=== PATIENT | female | born 2000 | race African-American/Black ===

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

== ENCOUNTER 2019-03-15 12:44 | Emergency (ER) | payer SELFPAY ==
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
[2019-03-15 14:19] LABS: ACETAMINOPHEN <2.0 ug/mL; CHLORIDE,CL 106 mmol/L (98-107); SODIUM,NA 137 mmol/L (136-145)
== END 2019-03-15 15:04 | disposition home or self-care (01) ==
LOC: MW.ED 12:44
DX: R45.851 Suicidal ideations (principal)
CPT/HCPCS: 36415; 80053; 80305; 81001; 83735; 84443; 85025; 93005; 99285; G0480

== ENCOUNTER 2019-04-24 13:19 | Emergency (ER) | payer SELFPAY ==
--- NOTE | 2019-04-24 13:37 | EDM.PDOC ---
ED HPI GENERAL MEDICAL PROBLEM - General Chief Complaint: ENT Problem Stated Complaint: AMB SORE THROAT Time Seen by Provider: 04/24/19 13:32 - History of Present Illness INITIAL COMMENTS - FREE TEXT/NARRATIVE: HISTORY AND PHYSICAL: History of present illness: Patient's 18-year-old black female presents with a concern of sore throat who reports history of . She has no other complaints Review of systems: As per history of present illness and below otherwise all systems reviewed and negative. Past medical history: As per history of present illness and as reviewed below otherwise noncontributory. Surgical history: As per history of present illness and as reviewed below otherwise noncontributory. Social history: No reported history of drug or alcohol abuse. Family history: As per history of present illness and as reviewed below otherwise noncontributory. Physical exam: HEENT: Atraumatic, normocephalic, pupils reactive, negative for conjunctival pallor or scleral icterus, mucous membranes moist, throat injected, neck supple , nontender, trachea midline. Lungs: Clear to auscultation, breath sounds equal bilaterally, chest nontender. Heart: S1S2, regular, negative for clicks, rubs, or JVD. Abdomen: Soft, nondistended, nontender. Negative for masses or hepatosplenomegaly. Negative for costovertebral tenderness. Pelvis: Stable nontender. Genitourinary: Deferred. Rectal: Deferred. Extremities: Atraumatic, negative for cords or calf pain. Neurovascular unremarkable. Neuro: Awake, alert, oriented. Cranial nerves II through XII unremarkable. Cerebellum unremarkable. Motor and sensory unremarkable throughout. Exam nonfocal. Diagnostics: Rapid strep Therapeutics: None Impression: # 1 pharyngitis #2 history of Definitive disposition and diagnosis as appropriate pending reevaluation and review of above. - Related Data Allergies Allergy/AdvReac Type Severity Reaction Status Date / Time No Known Allergies Allergy Verified 04/24/19 13:30 Home Meds: Home Meds . [No Known Home Meds] 11/16/17 [History] Past Medical History - Past Health History Medical/Surgical History: Denies Medical/Surgical History HEENT History: Reports: None Cardiovascular History: Reports: None Respiratory History: Reports: None Gastrointestinal History: Reports: None Genitourinary History: Reports: None SWABBER History: Reports: None Musculoskeletal History: Reports: None Neurological History: Reports: None Psychiatric History: Reports: Depression Hematologic History: Reports: None Immunologic History: Reports: None Oncologic (Cancer) History: Reports: None Dermatologic History: Reports: None - Infectious Disease History Infectious Disease History: Reports: Chicken Pox Social & Family History - Family History Family Medical History: Noncontributory - Tobacco Use Smoking Status *Q: Former Smoker Used Tobacco, but Quit: Yes Month/Year Tobacco Last Used: 2018 - Caffeine Use Caffeine Use: Reports: None - Recreational Drug Use Recreational Drug Use: Yes Recreational Drug Type: Reports: Marijuana/Hashish ED ROS GENERAL - Review of Systems Review Of Systems: ROS reveals no pertinent complaints other than HPI. ED EXAM, GENERAL - Physical Exam Exam: See Below (See dictation) Course - Vital Signs Last Recorded V/S: Last Vital Signs Temp 36.9 C 04/24/19 13:30 Pulse Resp BP Pulse Ox - Orders/Labs/Meds Orders: Active Orders 24 hr Category Date Time Status STREP SCRN A RAPID W CULT CONF [RM] Stat Lab 04/24/19 13:34 Ordered Departure - Departure Time of Disposition: 13:36 Disposition: Home, Self-Care 01 Condition: Good Clinical Impression: Pharyngitis - Discharge Information Additional Instructions: The following information is given to patients seen in the emergency department who are being discharged to home. This information is to outline your options for follow-up care. We provide all patients seen in our emergency department with a follow-up referral. The need for follow-up, as well as the timing and circumstances, are variable depending upon the specifics of your emergency department visit. If you don't have a primary care physician on staff, we will provide you with a referral. We always advise you to contact your personal physician following an emergency department visit to inform them of the circumstance of the visit and for follow-up with them and/or the need for any referrals to a consulting specialist. The emergency department will also refer you to a specialist when appropriate. This referral assures that you have the opportunity for followup care with a specialist. All of these measure are taken in an effort to provide you with optimal care, which includes your followup. Under all circumstances we always encourage you to contact your private physician who remains a resource for coordinating your care. When calling for followup care, please make the office aware that this follow-up is from your recent emergency room visit. If for any reason you are refused follow-up, please contact the [facility] emergency department at and asked to speak to the emergency department charge nurse. Push fluids Tylenol as directed follow-up with primary medical doctor and OB/ DOCUMENT COORDINATOR as needed as discussed and return as needed as discussed - My Orders Last 24 Hours: My Active Orders 04/24/19 13:34 STREP SCRN A RAPID W CULT CONF [RM] Stat - Assessment/Plan Last 24 Hours: My Active Orders 04/24/19 13:34 STREP SCRN A RAPID W CULT CONF [RM] Stat
== END 2019-04-24 15:00 | disposition home or self-care (01) ==
LOC: MW.ED 13:19
DX: O99.511 Diseases of the respiratory system complicating pregnancy, first trimester (principal); J02.9 Acute pharyngitis, unspecified; Z3A.01 Less than 8 weeks gestation of pregnancy; Z87.891 Personal history of nicotine dependence
CPT/HCPCS: 87081; 87880-QW; 99283

== ENCOUNTER 2019-05-12 13:57 | Emergency (ER) | payer SELFPAY ==
--- NOTE | 2019-05-12 14:18 | EDM.PDOC ---
ED HPI GENERAL MEDICAL PROBLEM - General Chief Complaint: Abdominal Pain Stated Complaint: abdominal pain Time Seen by Provider: 05/12/19 13:59 Source of Information: Reports: Patient History Limitations: Reports: No Limitations - History of Present Illness INITIAL COMMENTS - FREE TEXT/NARRATIVE: History of present illness: []Patient is a with severe right pelvic tenderness that started 15 minutes prior to arrival. She denies any vaginal bleeding or discharge, fevers, chills nausea vomiting or diarrhea. Review of systems: As per history of present illness and below otherwise all systems reviewed and negative. Past medical history: As per history of present illness and as reviewed below otherwise noncontributory. Surgical history: As per history of present illness and as reviewed below otherwise noncontributory. Social history: No reported history of drug or alcohol abuse. Family history: As per history of present illness and as reviewed below otherwise noncontributory. Physical exam: General: Well developed, well nourished in NAD HEENT: Atraumatic, normocephalic, pupils reactive, negative for conjunctival pallor or scleral icterus, mucous membranes moist, throat clear, neck supple, nontender, trachea midline. Lungs: Clear to auscultation, breath sounds equal bilaterally, chest nontender. Heart: S1S2, regular, negative for clicks, rubs, or JVD. Abdomen: NABS, Soft, nondistended, nontender. Negative for masses or hepatosplenomegaly. Negative for costovertebral tenderness. Pelvis: Stable nontender. Genitourinary: Deferred. Rectal: Deferred. Extremities: Atraumatic, negative for cords or calf pain. Neurovascular unremarkable. Neuro: Awake, alert, oriented. Cranial nerves II through XII unremarkable. Cerebellum unremarkable. Motor and sensory unremarkable throughout. Exam nonfocal. Skin:warm and dry Diagnostics: CBC hCG Quant Rh, UA chemistry, OB pelvic ultrasound-Single intrauterine gestation with estimated age of 10 weeks 0 days. Regular cardiac activity is seen. Normal appearance of both ovaries. Therapeutics: IV hydration ED Course: Stable Impression: Threatened Prescriptions: None Plan: Follow-up women's health Definitive disposition and diagnosis as appropriate pending reevaluation and review of above. Right Lower Abdominal Pain Score (Numeric/FACES): 9 - Related Data Allergies Allergy/AdvReac Type Severity Reaction Status Date / Time No Known Allergies Allergy Verified 05/12/19 14:12 Home Meds: Home Meds . 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: Musculoskeletal History: Reports: None Neurological History: Reports: None Psychiatric History: Reports: Depression Hematologic History: Reports: None Immunologic History: Reports: None Oncologic (Cancer) History: Reports: None Dermatologic History: Reports: None - Infectious Disease History Infectious Disease History: Reports: Chicken Pox Social & Family History - Family History Family Medical History: Noncontributory - Tobacco Use Smoking Status *Q: Never Smoker Second Hand Smoke Exposure: No - Caffeine Use Caffeine Use: Reports: None - Recreational Drug Use Recreational Drug Use: No ED ROS GENERAL - Review of Systems Review Of Systems: See Below ED EXAM - Physical Exam Exam: See Below Course - Vital Signs Last Recorded V/S: Last Vital Signs Temp 97.4 F 05/12/19 14:12 Pulse 81 05/12/19 15:57 Resp 16 05/12/19 15:05 BP 101/67 05/12/19 15:57 Pulse Ox 100 05/12/19 15:57 - Orders/Labs/Meds Orders: Active Orders 24 hr Category Date Time Status Sodium Chloride 0.9% [Saline Flush] Med 05/12/19 14:19 Active 10 ml FLUSH ASDIRECTED PRN Sodium Chloride 0.9% [Saline Flush] Med 05/12/19 14:19 Active 2.5 ml FLUSH ASDIRECTED PRN Saline Lock Insert [OM.PC] Stat Oth 05/12/19 14:19 Ordered Medication Orders Sodium Chloride (Saline Flush) 10 ml FLUSH ASDIRECTED PRN PRN Reason: Keep Vein Open Sodium Chloride (Saline Flush) 2.5 ml FLUSH ASDIRECTED PRN PRN Reason: Keep Vein Open Labs: Laboratory Tests 05/12/19 05/12/19 05/12/19 Range/Units 14:24 14:24 14:24 WBC 7.95 (4.0-11.0) K/uL RBC 4.22 L (4.30-5.90) M/uL Hgb 13.2 (12.0-16.0) g/dL Hct 38.1 (36.0-46.0) % MCV 90.3 (80.0-98.0) fL MCH 31.3 (27.0-32.0) pg MCHC 34.6 (31.0-37.0) g/dL RDW Std Deviation 44.1 (28.0-62.0) fl RDW Coeff of Silvino 13 (11.0-15.0) % Plt Count 313 (150-400) K/uL MPV 8.90 (7.40-12.00) fL Neut % (Auto) 68.7 (48.0-80.0) % Lymph % (Auto) 22.8 (16.0-40.0) % Baxter % (Auto) 5.4 (0.0-15.0) % Eos % (Auto) 2.5 (0.0-7.0) % Baso % (Auto) 0.6 (0.0-1.5) % Neut # (Auto) 5.5 (1.4-5.7) K/uL Lymph # (Auto) 1.8 (0.6-2.4) K/uL Baxter # (Auto) 0.4 (0.0-0.8) K/uL Eos # (Auto) 0.2 (0.0-0.7) K/uL Baso # (Auto) 0.1 (0.0-0.1) K/uL Nucleated RBC % 0.0 /100WBC Nucleated RBCs # 0 K/uL Sodium 138 (136-145) mmol/L Potassium 3.7 (3.5-5.1) mmol/L Chloride 105 (98-107) mmol/L Carbon Dioxide 23.2 (21.0-32.0) mmol/L BUN 8 (7.0-18.0) mg/dL Creatinine 0.9 (0.6-1.0) mg/dL Est Cr Clr Drug Dosing 75.59 mL/min Estimated GFR (MDRD) > 60.0 ml/min Glucose 123 H (74-106) mg/dL Calcium 8.7 (8.5-10.1) mg/dL Total Bilirubin 0.2 (0.2-1.0) mg/dL AST 15 (15-37) IU/L ALT 17 (14-63) IU/L Alkaline Phosphatase 59 (46-116) U/L Total Protein 6.8 (6.4-8.2) g/dL Albumin 3.2 L (3.4-5.0) g/dL Globulin 3.6 (2.6-4.0) g/dL Albumin/Globulin Ratio 0.9 (0.9-1.6) HCG, Quant mIU/mL Urine Color Urine Appearance Urine pH (5.0-8.0) Ur Specific [place] (1.001-1.035) Urine Protein (NEGATIVE) mg/dL Urine Glucose (UA) (NEGATIVE) mg/dL Urine Ketones (NEGATIVE) mg/dL Urine Occult Blood (NEGATIVE) Urine Nitrite (NEGATIVE) Urine Bilirubin (NEGATIVE) Urine Urobilinogen (<2.0) EU/dL Ur Leukocyte Esterase (NEGATIVE) Urine RBC (0-2/HPF) Urine WBC (0-5/HPF) Ur Epithelial Cells (NONE-FEW) Urine Bacteria (NEGATIVE) Urine Mucus (NONE-MOD) Blood Type O POSITIVE Antibody Screen NEGATIVE 05/12/19 05/12/19 Range/Units 14:24 16:42 WBC (4.0-11.0) K/uL RBC (4.30-5.90) M/uL Hgb (12.0-16.0) g/dL Hct (36.0-46.0) % MCV (80.0-98.0) fL MCH (27.0-32.0) pg MCHC (31.0-37.0) g/dL RDW Std Deviation (28.0-62.0) fl RDW Coeff of Silvino (11.0-15.0) % Plt Count (150-400) K/uL MPV (7.40-12.00) fL Neut % (Auto) (48.0-80.0) % Lymph % (Auto) (16.0-40.0) % Baxter % (Auto) (0.0-15.0) % Eos % (Auto) (0.0-7.0) % Baso % (Auto) (0.0-1.5) % Neut # (Auto) (1.4-5.7) K/uL Lymph # (Auto) (0.6-2.4) K/uL Baxter # (Auto) (0.0-0.8) K/uL Eos # (Auto) (0.0-0.7) K/uL Baso # (Auto) (0.0-0.1) K/uL Nucleated RBC % /100WBC Nucleated RBCs # K/uL Sodium (136-145) mmol/L Potassium (3.5-5.1) mmol/L Chloride (98-107) mmol/L Carbon Dioxide (21.0-32.0) mmol/L BUN (7.0-18.0) mg/dL Creatinine (0.6-1.0) mg/dL Est Cr Clr Drug Dosing mL/min Estimated GFR (MDRD) ml/min Glucose (74-106) mg/dL Calcium (8.5-10.1) mg/dL Total Bilirubin (0.2-1.0) mg/dL AST (15-37) IU/L ALT (14-63) IU/L Alkaline Phosphatase (46-116) U/L Total Protein (6.4-8.2) g/dL Albumin (3.4-5.0) g/dL Globulin (2.6-4.0) g/dL Albumin/Globulin Ratio (0.9-1.6) HCG, Quant 965677.0 mIU/mL Urine Color YELLOW Urine Appearance CLEAR Urine pH 6.5 (5.0-8.0) Ur Specific [place] 1.015 (1.001-1.035) Urine Protein NEGATIVE (NEGATIVE) mg/dL Urine Glucose (UA) NEGATIVE (NEGATIVE) mg/dL Urine Ketones NEGATIVE (NEGATIVE) mg/dL Urine Occult Blood NEGATIVE (NEGATIVE) Urine Nitrite NEGATIVE (NEGATIVE) Urine Bilirubin NEGATIVE (NEGATIVE) Urine Urobilinogen 0.2 (<2.0) EU/dL Ur Leukocyte Esterase NEGATIVE (NEGATIVE) Urine RBC 0-1 (0-2/HPF) Urine WBC 0-2 (0-5/HPF) Ur Epithelial Cells FEW (NONE-FEW) Urine Bacteria FEW (NEGATIVE) Urine Mucus LIGHT (NONE-MOD) Blood Type Antibody Screen Meds: Medications Generic Name Dose Route Start Last Admin Trade Name Freq PRN Reason Stop Dose Admin Sodium Chloride 10 ml 05/12/19 14:19 Saline Flush FLUSH ASDIRECTED PRN Keep Vein Open Sodium Chloride 2.5 ml 05/12/19 14:19 Saline Flush FLUSH ASDIRECTED PRN Keep Vein Open Discontinued Medications Generic Name Dose Route Start Last Admin Trade Name Freq PRN Reason Stop Dose Admin Sodium Chloride 1,000 mls @ 999 mls/hr 05/12/19 15:53 05/12/19 15:57 Normal Saline IV 05/12/19 16:53 999 mls/hr .Bolus ONE Administration Departure - Departure Time of Disposition: 17:06 Disposition: Home, Self-Care 01 Condition: Good Clinical Impression: Threatened - Discharge Information *PRESCRIPTION DRUG MONITORING PROGRAM REVIEWED*: Not Applicable *COPY OF PRESCRIPTION DRUG MONITORING REPORT IN PATIENT RANDY: Not Applicable Referrals: PCP,None [Primary Care Provider] - Forms: ED Department Discharge Additional Instructions: The following information is given to patients seen in the emergency department who are being discharged to home. This information is to outline your options for follow-up care. We provide all patients seen in our emergency department with a follow-up referral. The need for follow-up, as well as the timing and circumstances, are variable depending upon the specifics of your emergency department visit. If you don't have a primary care physician on staff, we will provide you with a referral. We always advise you to contact your personal physician following an emergency department visit to inform them of the circumstance of the visit and for follow-up with them and/or the need for any referrals to a consulting specialist. The emergency department will also refer you to a specialist when appropriate. This referral assures that you have the opportunity for follow-up care with a specialist. All of these measure are taken in an effort to provide you with optimal care, which includes your follow-up. Under all circumstances we always encourage you to contact your private physician who remains a resource for coordinating your care. When calling for follow-up care, please make the office aware that this follow-up is from your recent emergency room visit. If for any reason you are refused follow-up, please contact the [facility] Emergency Department at and asked to speak to the emergency department charge nurse. [facility] - Women's [facility] [address] [place] [id number] - My Orders Last 24 Hours: My Active Orders 05/12/19 14:19 Sodium Chloride 0.9% [Saline Flush] 10 ml FLUSH ASDIRECTED PRN Sodium Chloride 0.9% [Saline Flush] 2.5 ml FLUSH ASDIRECTED PRN Saline Lock Insert [OM.PC] Stat - Assessment/Plan Last 24 Hours: My Active Orders 05/12/19 14:19 Sodium Chloride 0.9% [Saline Flush] 10 ml FLUSH ASDIRECTED PRN Sodium Chloride 0.9% [Saline Flush] 2.5 ml FLUSH ASDIRECTED PRN Saline Lock Insert [OM.PC] Stat
[2019-05-12] MEDS ORDERED: Sodium Chloride 0.9% 10 ML Syringe FLUSH PRN (14:19)
[2019-05-12] MEDS ORDERED: Sodium Chloride 0.9% 2.5 ML Syringe FLUSH PRN (14:19)
[2019-05-12 14:58] LABS: CHLORIDE,CL 105 mmol/L (98-107); SODIUM,NA 138 mmol/L (136-145)
[2019-05-12] MEDS ORDERED: Sodium Chloride 0.9% 1,000 ML IV ONE (15:53)
--- NOTE | 2019-05-12 16:01 | US ---
HISTORY: Severe right lower quadrant pain. Ten weeks . COMPARISON: None available of this gestation. TECHNIQUE: Transabdominal ultrasound examination of the early was performed. FINDINGS: A single intrauterine gestational sac is seen with a pole. The crown-rump length measurement of 2.9 cm gives an estimated gestational age of 9 weeks 5 days. The mean sac diameter measurement of 4.4 centimeters gives an estimated gestational age of 10 weeks 2 days. The composite estimated age is 10 weeks 0 days with an estimated date of delivery of 12/08/2019. This correlates well with the LMP of 03/01/2019 which gives a clinical age of 10 weeks 2 days. Regular cardiac activity is seen at 167 BPM. There is no sign of free fluid in the pelvis. The ovaries are normal in appearance. Both ovaries have normal color and pulse doppler flow IMPRESSION: Single intrauterine gestation with estimated age of 10 weeks 0 days. Regular cardiac activity is seen. Normal appearance of both ovaries. Dictated by Chris Sandoval MD @ May 12 2019 3:55PM Signed by Dr. Chris Sandoval @ May 12 2019 4:00PM
== END 2019-05-12 17:30 | disposition home or self-care (01) ==
LOC: MW.ED 13:57
DX: O20.0 Threatened abortion (principal); Z3A.10 10 weeks gestation of pregnancy
CPT/HCPCS: 36415; 76815; 80053; 81001; 84702; 85025; 86850; 86900; 86901; 96360; 99284; J7040

== ENCOUNTER 2019-06-07 02:08 | Emergency (ER) | payer SELFPAY ==
--- NOTE | 2019-06-07 02:24 | EDM.PDOC ---
ED HPI GENERAL MEDICAL PROBLEM - General Chief Complaint: Respiratory Problem Stated Complaint: TROUBLE BREATHING Time Seen by Provider: 06/07/19 02:15 - History of Present Illness INITIAL COMMENTS - FREE TEXT/NARRATIVE: HISTORY AND PHYSICAL: History of present illness: The patient is a 18-year-old female who is a one para 0 an approximate 14 weeks by an ultrasound performed on May 12 here in the emergency department and who follows in our clinic with Shavonne Cleaning and presents with 5 days of cough occasionally productive of clear or white phlegm body aches malaise a sore throat initially which has now dissipated and some lumbar back pain. She has not had any urinary complaints no vomiting no diarrhea and no chest pain per se. She says that with the cough she is also having significant congestion and nasal drainage and she feels short of breath with these symptoms. She has not spoken to her provider about these symptoms. The patient is not having any abdominal pain or vaginal bleeding Review of systems: As per history of present illness and below otherwise all systems reviewed and negative. Past medical history: As per history of present illness and as reviewed below otherwise noncontributory. Surgical history: As per history of present illness and as reviewed below otherwise noncontributory. Social history: No reported history of drug or alcohol abuse. Family history: As per history of present illness and as reviewed below otherwise noncontributory. Physical exam: General: Well-developed well-nourished thin female who is nontoxic and has nasal quality to voice. Vital signs are noted by me. She is coughing in the emergency department with some clear phlegm HEENT: Atraumatic, normocephalic, pupils reactive, negative for conjunctival pallor or scleral icterus, mucous membranes moist, throat clear, neck supple, nontender, trachea midline. There is no cervical adenopathy or nuchal rigidity and the oropharynx has no erythema. The turbinates are boggy bilaterally but there is no discrete sinus tenderness with palpation Lungs: Clear to auscultation, breath sounds equal bilaterally, chest nontender. There is no wheezing stridor or work of breathing Heart: S1S2, regular, rate and rhythm no overt murmurs Abdomen: Soft, nondistended, nontender. NABS Negative for costovertebral tenderness. Pelvis: Stable nontender. Genitourinary: Deferred. Rectal: Deferred. Extremities: Atraumatic, no edema Neurovascular unremarkable. Neuro: Awake, alert, oriented. Cranial nerves II through XII unremarkable. Cerebellum unremarkable. Motor and sensory unremarkable throughout. Exam nonfocal. Diagnostics: Influenza A UA with reflex chest x-ray Therapeutics: Impression: URI/rhinitis-nasal congestion Second trimester Definitive disposition and diagnosis as appropriate pending reevaluation and review of above. 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: Musculoskeletal History: Reports: None Neurological History: Reports: None Psychiatric History: Reports: Depression Hematologic History: Reports: None Immunologic History: Reports: None Oncologic (Cancer) History: Reports: None Dermatologic History: Reports: None - Infectious Disease History Infectious Disease History: Reports: Chicken Pox Social & Family History - Family History Family Medical History: Noncontributory - Tobacco Use Smoking Status *Q: Never Smoker - Caffeine Use Caffeine Use: Reports: None - Recreational Drug Use Recreational Drug Use: No ED ROS GENERAL - Review of Systems Review Of Systems: ROS reveals no pertinent complaints other than HPI. ED EXAM, GENERAL - Physical Exam Exam: See Below (See dictation) Course - Vital Signs Last Recorded V/S: Last Vital Signs Temp 36.8 C 06/07/19 02:08 Pulse 106 H 06/07/19 02:08 Resp 18 06/07/19 02:08 BP 106/58 L 06/07/19 02:08 Pulse Ox 97 06/07/19 02:08 - Orders/Labs/Meds Labs: Laboratory Tests 06/07/19 Range/Units 02:25 Urine Color YELLOW Urine Appearance CLEAR Urine pH 6.5 (5.0-8.0) Ur Specific [place] 1.025 (1.001-1.035) Urine Protein NEGATIVE (NEGATIVE) mg/dL Urine Glucose (UA) NEGATIVE (NEGATIVE) mg/dL Urine Ketones NEGATIVE (NEGATIVE) mg/dL Urine Occult Blood NEGATIVE (NEGATIVE) Urine Nitrite NEGATIVE (NEGATIVE) Urine Bilirubin NEGATIVE (NEGATIVE) Urine Urobilinogen 0.2 (<2.0) EU/dL Ur Leukocyte Esterase NEGATIVE (NEGATIVE) Departure - Departure Time of Disposition: 03:02 Disposition: Home, Self-Care 01 Condition: Good Clinical Impression: Second trimester URI (upper respiratory infection) Qualifiers: URI type: unspecified URI Qualified Code(s): J06.9 - Acute upper respiratory infection, unspecified - Discharge Information Referrals: PCP,None [Primary Care Provider] - Forms: ED Department Discharge Additional Instructions: The following information is given to patients seen in the emergency department who are being discharged to home. This information is to outline your options for follow-up care. We provide all patients seen in our emergency department with a follow-up referral. The need for follow-up, as well as the timing and circumstances, are variable depending upon the specifics of your emergency department visit. If you don't have a primary care physician on staff, we will provide you with a referral. We always advise you to contact your personal physician following an emergency department visit to inform them of the circumstance of the visit and for follow-up with them and/or the need for any referrals to a consulting specialist. The emergency department will also refer you to a specialist when appropriate. This referral assures that you have the opportunity for followup care with a specialist. All of these measure are taken in an effort to provide you with optimal care, which includes your followup. Under all circumstances we always encourage you to contact your private physician who remains a resource for coordinating your care. When calling for followup care, please make the office aware that this follow-up is from your recent emergency room visit. If for any reason you are refused follow-up, please contact the [facility] emergency department at and ask to speak to the emergency department charge nurse. [facility] Primary care-Women's Health [address] [id number] Push hydration and call and schedule a follow-up appointment with Shavonne your provider in the clinic for further care and evaluation. He may use over-the- counter Benadryl or Claritin to help with nasal congestion and fluid as well as [id number] Vicks for sleep time to help open up. Airways. You will need to discuss with Shavonne Cleaning any additional cough medications due to your . He may also add [id number] Tylenol for pain or fevers. Return to ER as needed and as discussed
--- NOTE | 2019-06-07 03:02 | CR ---
INDICATION: cough TECHNIQUE: Chest radiograph 2 views COMPARISON: 07/14/18 FINDINGS: Mediastinum: The mediastinum is normal in appearance. The heart silhouette is normal in size and morphology. Lung: Both lungs are unremarkable in appearance. No sign of pleural effusion seen. No pneumothorax is identified. IMPRESSION: 1. No acute cardiopulmonary disease is seen. Dictated by: David Zhang MD @ 06/07/2019 02:59:31 (Electronically Signed)
== END 2019-06-07 03:10 | disposition home or self-care (01) ==
LOC: MW.ED 02:08
DX: O99.512 Diseases of the respiratory system complicating pregnancy, second trimester (principal); J06.9 Acute upper respiratory infection, unspecified; J31.0 Chronic rhinitis; Z3A.14 14 weeks gestation of pregnancy
CPT/HCPCS: 71046; 71046-26; 81003; 87804; 99283-25

== ENCOUNTER 2020-05-09 16:34 | Emergency (ER) | payer MEDICAID ==
[2020-05-09] MEDS ORDERED: Sodium Chloride 0.9% 1,000 ML IV ONE (16:42)
[2020-05-09] MEDS ORDERED: Sodium Chloride 0.9% 2.5 ML Syringe FLUSH PRN (16:42)
[2020-05-09] MEDS ORDERED: Sodium Chloride 0.9% 10 ML Syringe FLUSH PRN (16:42)
[2020-05-09] MEDS ORDERED: Ibuprofen 600 MG Tab PO ONE (17:01)
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
[2020-05-09 17:26] LABS: CARBON DIOXIDE,CO2 23.3 mmol/L (21.0-32.0); POTASSIUM,K 3.6 mmol/L (3.5-5.1)
--- NOTE | 2020-05-09 18:24 | CT ---
CT cervical spine Technique: Multiple axial sections through the cervical spine were obtained from above C1 inferiorly to the top of T3. Reconstructed sagittal and coronal images were reviewed. Findings: Vertebral body heights and disc spaces are maintained. Vertebral bodies and posterior arches are intact. No bony central or bony neural foraminal stenosis is seen. Visualized lung apices are clear. No acute fracture or abnormal subluxation is seen. Impression: 1. Nothing acute is appreciated on CT study of the cervical spine. Diagnostic code #1 This report was dictated in MDT
--- NOTE | 2020-05-09 18:25 | CT ---
Head CT Technique: Multiple axial sections through the brain were obtained. Intravenous contrast was not utilized. Comparison: No prior intracranial imaging is available. Findings: Ventricles along with basal cisterns and sulci over the convexities are within normal limits for the patient's age. No abnormal parenchymal densities are seen. No evidence of intracranial hemorrhage. No midline shift or mass-effect is seen. Visualized mastoid sinuses are clear. Minimal mucosal thickening is seen within the maxillary sinuses. No acute paranasal sinus finding is seen. No acute calvarial finding is appreciated. Impression: 1. Nothing acute is appreciated on noncontrast head CT study. Diagnostic code #2 This report was dictated in MDT
--- NOTE | 2020-05-09 18:37 | CR ---
Chest: 2 views of the chest were obtained. Comparison: Prior chest x-ray of 06/07/19. Heart size and mediastinum are normal. Lungs are clear with no acute parenchymal change. No discrete osseous abnormality is appreciated. Impression: 1. Nothing acute is appreciated on 2 view chest x-ray. Diagnostic code #1 Study was dictated in MDT
--- NOTE | 2020-05-09 18:52 | CR ---
Lumbar spine: AP and lateral views of the lumbar spine were obtained. Comparison: No prior lumbar spine imaging. Vertebral body heights and disc spaces are maintained. Pedicles are intact. Transverse and spinous processes are intact. Sacroiliac joints appear normal. Minimal scoliosis is noted on the frontal view. Impression: 1. Minimal scoliosis. 2. Two-view lumbar spine study is otherwise unremarkable. Nothing acute is appreciated. Diagnostic code #2 This report was dictated in MDT
--- NOTE | 2020-05-09 18:53 | CR ---
Thoracic spine: AP and lateral views of the thoracic spine were obtained. Comparison: No prior thoracic spine imaging. Mild scoliosis is noted. Vertebral body heights and disc spaces are maintained. Pedicles are intact. No subluxation or fracture is appreciated. Impression: 1. Mild scoliosis. 2. Two-view thoracic spine study is otherwise unremarkable. Diagnostic code #2 This report was dictated in MDT
[2020-05-09] MEDS ORDERED: Acetaminophen 500 MG Tab PO ONE (18:54)
== END 2020-05-09 19:17 | disposition home or self-care (01) ==
LOC: MW.ED 16:34
DX: S06.0X9A Concussion with loss of consciousness of unspecified duration, initial encounter (principal); S16.1XXA Strain of muscle, fascia and tendon at neck level, initial encounter; S39.012A Strain of muscle, fascia and tendon of lower back, initial encounter; N93.9 Abnormal uterine and vaginal bleeding, unspecified; Y04.2XXA Assault by strike against or bumped into by another person, initial encounter
CPT/HCPCS: 36415; 70450; 71046; 72070; 72100; 72125; 80053; 84703; 85025; 99284; A9270; 99283

== ENCOUNTER 2020-07-25 20:18 | Emergency (ER) | payer MEDICAID ==
--- NOTE | 2020-07-25 21:05 | EDM.PDOC ---
ED HPI GENERAL MEDICAL PROBLEM - General Chief Complaint: Fever Stated Complaint: SICK, COUGH, FEVER Time Seen by Provider: 07/25/20 20:20 - History of Present Illness INITIAL COMMENTS - FREE TEXT/NARRATIVE: History of present illness: [] Patient's been sick for 5 or 6 days. She has cough shortness of breath feels tired. She went to an emergency department 5 days ago and did not wait because it was too busy. He is also sick and I have diagnosed her tonight with an otitis media. Review of systems: As per history of present illness and below otherwise all systems reviewed and negative. Past medical history: As per history of present illness and as reviewed below otherwise noncontributory. Surgical history: As per history of present illness and as reviewed below otherwise noncontributory. Social history: No reported history of drug or alcohol abuse. Family history: As per history of present illness and as reviewed below otherwise noncontributory. Physical exam: Constitutional - well developed, well-nourished and in no acute distress HEENT - normocephalic, no evidence of trauma - external nose and mouth normal - no mass in neck and no JVD - mucosae moist EYES - full EOM, PERRL, no icterus - no evidence of inflammation, injection, or drainage Respiratory - no respiratory distress, equal bilateral expansion, lungs clear to auscultation and no abnormal lung sounds Cardiovascular - Regular Rhythm with S1 and S2 appreciated and no murmur, gallop or rub. GI - abdomen soft without distension or organomegaly - normal bowel sounds - no guard or rebound Musculoskeletal no gross deformity of long bones or joints - no tenderness, swelling or edema Neurologic - Alert and oriented times four - CN II-XII grossly intact - motor sensory and coordination symmetrically normal Psychiatric - appropriate mood and affect with normal thought content Hematologic - No petechiae or purpura - mucosa appropriate color and sclera not pale - normal nail bed color and refill Integument - no rash or evidence of trauma - normal turgor Diagnostics: [] Therapeutics: [] Impression: [] Plan: [] Definitive disposition and diagnosis as appropriate pending reevaluation and review of above. - Related Data Allergies Allergy/AdvReac Type Severity Reaction Status Date / Time No Known Allergies Allergy Verified 07/25/20 20:38 Home Meds: Home Meds . 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: Musculoskeletal History: Reports: None Neurological History: Reports: None Psychiatric History: Reports: Anxiety, Depression Hematologic History: Reports: None Immunologic History: Reports: None Oncologic (Cancer) History: Reports: None Dermatologic History: Reports: None - Infectious Disease History Infectious Disease History: Reports: None Social & Family History - Family History Family Medical History: Noncontributory - Tobacco Use Tobacco Use Status *Q: Never Tobacco User Second Hand Smoke Exposure: No - Caffeine Use Caffeine Use: Reports: None - Recreational Drug Use Recreational Drug Use: No ED ROS GENERAL - Review of Systems Review Of Systems: Comprehensive ROS is negative, except as noted in HPI. ED EXAM, GENERAL - Physical Exam Exam: See Below Free Text/Narrative:: My physical exam as in the HPI Course - Vital Signs Last Recorded V/S: Last Vital Signs Temp 96.6 F L 07/25/20 20:38 Pulse 94 07/25/20 20:38 Resp 18 07/25/20 20:38 BP 99/57 L 07/25/20 20:38 Pulse Ox 97 07/25/20 20:38 - Orders/Labs/Meds Orders: Active Orders 24 hr Category Date Time Status CORONAVIRUS COVID-19 PCR [facility] Stat Lab 07/25/20 21:05 Received Labs: Laboratory Tests 07/25/20 Range/Units 21:05 SARS CoV-2 RNA Rapid TAO NEGATIVE (NEGATIVE) Departure - Departure Time of Disposition: 21:42 Disposition: Home, Self-Care 01 Condition: Good Clinical Impression: Viral syndrome - Discharge Information Instructions: Viral Illness, Adult Referrals: PCP,None [Primary Care Provider] - Forms: ED Department Discharge Additional Instructions: [facility] [address] [place] [id number] [address] The following information is given to patients seen in the emergency department who are being discharged to home. This information is to outline your options for follow-up care. We provide all patients seen in our emergency department with a follow-up referral. The need for follow-up, as well as the timing and circumstances, are variable depending upon the specifics of your emergency department visit. If you don't have a primary care physician on staff, we will provide you with a referral. We always advise you to contact your personal physician following an emergency department visit to inform them of the circumstance of the visit and for follow-up with them and/or the need for any referrals to a consulting specialist. The emergency department will also refer you to a specialist when appropriate. This referral assures that you have the opportunity for follow-up care with a specialist. All of these measure are taken in an effort to provide you with optimal care, which includes your follow-up. Under all circumstances we always encourage you to contact your private physician who remains a resource for coordinating your care. When calling for follow-up care, please make the office aware that this follow-up is from your recent emergency room visit. If for any reason you are refused follow-up, please contact the [facility] Emergency Department at and asked to speak to the emergency department charge nurse. Viral illness should avoid contact with other people that might be susceptible to COVID-19 until they have had 10 days past since onset of their illness and fever symptoms without any medicine to reduce fever Sepsis Event Note (ED) - Evaluation Sepsis Screening Result: No Definite Risk - Focused Exam Vital Signs: Vital Signs Temp Pulse Resp BP Pulse Ox 07/25/20 20:38 96.6 F L 94 18 99/57 L 97 - My Orders Last 24 Hours: My Active Orders 07/25/20 21:05 CORONAVIRUS COVID-19 PCR [facility] Stat - Assessment/Plan Last 24 Hours: My Active Orders 07/25/20 21:05 CORONAVIRUS COVID-19 PCR [facility] Stat
== END 2020-07-25 22:15 | disposition home or self-care (01) ==
LOC: MW.ED 20:18
DX: B34.9 Viral infection, unspecified (principal); Z20.828 Contact with and (suspected) exposure to other viral communicable diseases
CPT/HCPCS: 99283; U0002

== ENCOUNTER 2021-03-17 09:24 | Emergency (ER) | payer MEDICAID ==
[2021-03-17] MEDS ORDERED: Doxycycline 100 MG Cap PO ONE (12:22)
[2021-03-17] MEDS ORDERED: cefTRIAXone 500 MG in Lidocaine 1% 1 ML IM ONE (12:22)
[2021-03-17] MEDS ORDERED: metroNIDAZOLE 250 MG Tab PO ONE (12:23)
--- NOTE | 2021-03-17 12:38 | US ---
CLINICAL HISTORY: Pain TECHNIQUE: 2D dacosta scale ultrasound. In addition color Doppler and spectral Doppler analysis was performed of the pelvis using a transvaginal approach. FINDINGS: On transvaginal imaging, the myometrium has a normal uniform echotexture. The uterus measures 7.8 x 4.5 x 4.1 cm. The endometrial lining appears normal and measures 13 mm in thickness. The right ovary measures 3.4 x 3.6 x 2.1 cm in size and the left ovary measures 2.8 x 2.2 x 3.1 cm. Incidental simple cyst left ovary measuring 1.5 cm. The ovaries demonstrate normal arterial and venous blood flow on color Doppler and spectral Doppler analysis. There are no suspicious fluid collections within the cul-de-sac. IMPRESSION: Normal pelvic ultrasound. No evidence of tubo-ovarian abscess. Dictated by Abimael Salinas MD @ 03/17/2021 12:36:[address] Abimael Salinas @ Mar 17 2021 12:36PM
--- NOTE | 2021-03-17 12:43 | EDM.PDOC ---
ED HPI GENERAL MEDICAL PROBLEM - General Chief Complaint: General Stated Complaint: UTI Time Seen by Provider: 03/17/21 09:31 - History of Present Illness INITIAL COMMENTS - FREE TEXT/NARRATIVE: CHIEF COMPLAINT(S): "I believe I have a bacterial infection." HISTORY OF PRESENT ILLNESS: This is a 20-year-old woman without any past medical history of who comes to the emergency department with a chief complaint of "I believe I have a bacterial infection." The patient states that she has been experiencing a bacterial infection for the last few days. She has not tried anything for the pain. She describes pelvic pain as achy and 9 out of 10. There is an associated odor change in a yellow milky white discharge from her vagina. She denies any back pain, fever or chills. She denies any dysuria or hematuria. She states that she has had similar symptoms in the past but denies any prior STDs before. She states that she has been with multiple partners and does not consistently use barrier protection. She states that there are no aggravating or relieving factors. There is no radiation of this pain. REVIEW OF SYSTEMS: Constitutional: Denies fever, chills. Eyes: Denies eye pain Ears, Nose, Mouth, & Throat: Denies earache Cardiovascular: Denies chest pain Respiratory: Denies shortness of breath Gastrointestinal: Denies Nausea, vomiting, diarrhea, hematochezia. Genitourinary: Positive for pelvic pain, vaginal discharge. Denies vaginal bleeding, dysuria, hematuria Skin:Denies a rash MSK: Denies joint pain Neurological: Denies blurred vision Psychiatric: Denies depression PAST MEDICAL HISTORY: As per history of present illness and as reviewed below otherwise noncontributory. SURGICAL HISTORY: As per history of present illness and as reviewed below otherwise noncontributory. SOCIAL HISTORY: As per history of present illness and as reviewed below otherwise noncontributory. FAMILY HISTORY: As per history of present illness and as reviewed below otherwise noncontributory. EXAMINATION OF ORGAN SYSTEMS/BODY AREAS: Constitutional: Blood pressure was 124/74, heart rate 77, respiratory rate 16 with an oxygen saturation of 97% on room air. Temperature 36.6 General: Overall well-appearing woman who is in no acute distress Psychiatric: Appropriate mood and affect. Eyes: No scleral icterus or conjunctival erythema ENMT: Moist mucous membranes. No pharyngeal erythema Cardiovascular: Regular, rate, and rhythm. No gallops, murmurs, or rubs. Bilateral upper extremity pulses symmetric and intact. No peripheral edema. No JVD. Respiratory: Lungs clear to auscultation bilaterally. No wheezes, rales, or rhonchi. Gastrointestinal: Soft, non-tender, non-distended. Normoactive bowel sounds Genitourinary: No suprapubic tenderness pelvic examination was performed with TRACY Young in presence. On speculum examination the cervix does appear erythematous with a white frothy discharge. We did obtain swabs. On bimanual examination there was left adnexal tenderness, no cervical motion tenderness or right adnexal tenderness. Musculoskeletal: Normal range of motion. Skin: No lesions or abrasions. Neurological: Alert, GCS 15 MEDICAL DECISION MAKING AND COURSE IN THE ED WITH INTERPRETATION/REVIEW OF DIAGNOSTIC STUDIES: This is a 20-year-old woman without any significant past medical history who comes to the emergency department with pelvic pain with vaginal discharge, erythematous cervix and multiple recent partners with left adnexal tenderness who has stable vital signs. At this time given the left adnexal tenderness we will obtain a transvaginal ultrasound to evaluate for tubo-ovarian abscess. Will obtain a urinalysis and hCG. We will send swabs for BV, trichomonas, danny, gonorrhea and chlamydia. The patient was amenable to this plan. Urinalysis was a clean catch and was negative for leukocyte esterase, negative for nitrites, and negative for blood. Interpretation: Negative. Laboratory: Urine hCG is negative. BV is positive. Trichomonas and Danny are negative. The radiological images were viewed by myself along with reading the report from the radiologist. Transvaginal ultrasound reveals a normal pelvic ultrasound without any evidence of tubo-ovarian abscess. After imaging I did discuss results with the patient. I did provide the patient with IM ceftriaxone, doxycycline and metronidazole. I did send her prescriptions to the pharmacy. I did discuss with her at this time that she should refrain from intercourse for the next 14 days and to always use barrier protection. I discussed that if she had any worsening of her symptoms, fever, worsening pain she need to return to the emergency department. She was amenable discharge and had no further questions DISPOSITION: The patient was discharged home in stable condition. The patient will follow up with primary care physician in 3 to 5 days CONDITION: Fair PROCEDURES: None FINAL IMPRESSION(S)/DIAGNOSES: 1. Acute vaginitis likely secondary to bacterial vaginosis versus sexually transmitted infection Bird Lowe M.D. 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: Musculoskeletal History: Reports: None Neurological History: Reports: None Psychiatric History: Reports: Anxiety, Depression Hematologic History: Reports: None Immunologic History: Reports: None Oncologic (Cancer) History: Reports: None Dermatologic History: Reports: None - Infectious Disease History Infectious Disease History: Reports: None Social & Family History - Family History Family Medical History: No Pertinent Family History - Tobacco Use Tobacco Use Status *Q: Never Tobacco User - Caffeine Use Caffeine Use: Reports: None - Recreational Drug Use Recreational Drug Use: No ED ROS GENERAL - Review of Systems Review Of Systems: See Below ED EXAM, GENERAL - Physical Exam Exam: See Below Course - Vital Signs Last Recorded V/S: Last Vital Signs Temp 36.6 C 03/17/21 12:46 Pulse 64 03/17/21 12:46 Resp 16 03/17/21 12:46 BP 87/47 L 03/17/21 12:46 Pulse Ox 99 03/17/21 12:46 - Orders/Labs/Meds Orders: Active Orders 24 hr Category Date Time Status CHLAMYDIA AND GONORRHEA BY TMA Stat Lab 03/17/21 10:03 Received Labs: Laboratory Tests 03/17/21 03/17/21 03/17/21 Range/Units 09:37 09:37 10:03 Urine Color YELLOW Urine Appearance CLEAR Urine pH 6.0 (5.0-8.0) Ur Specific [place] >= 1.030 (1.001-1.035) Urine Protein NEGATIVE (NEGATIVE) mg/dL Urine Glucose (UA) NEGATIVE (NEGATIVE) mg/dL Urine Ketones NEGATIVE (NEGATIVE) mg/dL Urine Occult Blood NEGATIVE (NEGATIVE) Urine Nitrite NEGATIVE (NEGATIVE) Urine Bilirubin NEGATIVE (NEGATIVE) Urine Urobilinogen 0.2 (<2.0) EU/dL Ur Leukocyte Esterase NEGATIVE (NEGATIVE) Urine HCG, Qual NEGATIVE (NEGATIVE) Danny species DNA NEGATIVE (NEGATIVE) Gardnerella DNA Probe POSITIVE H (NEGATIVE) Trichomonas DNA Probe NEGATIVE (NEGATIVE) Meds: Medications Discontinued Medications Generic Name Dose Route Start Last Admin Trade Name Fernando PRN Reason Stop Dose Admin Doxycycline Hyclate 100 mg 03/17/21 12:22 03/17/21 12:59 Doxycycline 100 Mg Cap PO 03/17/21 12:23 100 mg ONETIME ONE Administration Ceftriaxone Sodium 500 mg/ 1 mls @ 1 mls/sec 03/17/21 12:22 03/17/21 12:57 Lidocaine HCl IM 03/17/21 12:23 1 mls/sec ONETIME ONE Administration Metronidazole 500 mg 03/17/21 12:23 03/17/21 12:58 Metronidazole 250 Mg Tab PO 03/17/21 12:24 500 mg ONETIME ONE Administration Departure - Departure Time of Disposition: 12:38 Disposition: Home, Self-Care 01 Condition: Fair Clinical Impression: STD (female), Bacterial vaginosis - Discharge Information *PRESCRIPTION DRUG MONITORING PROGRAM REVIEWED*: No *COPY OF PRESCRIPTION DRUG MONITORING REPORT IN PATIENT RANDY: No Prescriptions: metroNIDAZOLE [Metronidazole] 500 mg PO BID #13 tablet Doxycycline [Vibra-Tabs] 100 mg PO Q12HR #13 tab Instructions: Bacterial Vaginosis, [id number], Chlamydia, Female, Preventing Sexually Transmitted Infections, Adult, Gonorrhea Referrals: PCP,None [Primary Care Provider] - Forms: ED Department Discharge Additional Instructions: You evaluate today on an emergent basis. At this time you were diagnosed with bacterial vaginosis. We are treating you fully for sexually transmitted infections. I do recommend that she refrain from sexual intercourse for 14 days. There is no need to retest after this. As always it is important to wear barrier protection such as condoms, dental damage, or female condom. You should tell your partners. As discussed your gonorrhea and Chlamydia tests are still in process. You will be contacted if they are positive. Please continue to take metronidazole and doxycycline as prescribed until all antibiotics are gone. Please follow-up with primary care physician. If you do not have a primary care physician 2 numbers are listed below. [facility] [address] [place] [address] [facility] [address] [place] [address] The patient is informed of any results of their evaluation and diagnostic workup and all questions are answered. They are given discharge instructions and return precautions. The patient is stable for discharge. The patient states they understand and agree with the plan and that they will return if their symptoms get worse or if they have any new concerns. The following information is given to patients seen in the emergency department who are being discharged to home. This information is to outline your options for follow-up care. We provide all patients seen in our emergency department with a follow-up referral. The need for follow-up, as well as the timing and circumstances, are variable depending upon the specifics of your emergency department visit. If you don't have a primary care physician on staff, we will provide you with a referral. We always advise you to contact your personal physician following an emergency department visit to inform them of the circumstance of the visit and for follow-up with them and/or the need for any referrals to a consulting speci alist. The emergency department will also refer you to a specialist when appropriate. This referral assures that you have the opportunity for follow-up care with a specialist. All of these measure are taken in an effort to provide you with optimal care, which includes your follow-up. Under all circumstances we always encourage you to contact your private physician who remains a resource for coordinating your care. When calling for follow-up care, please make the office aware that this follow-up is from your recent emergency room visit. If for any reason you are refused follow-up, please contact the [facility] Emergency Department at and asked to speak to the emergency department charge nurse. Sepsis Event Note (ED) - Evaluation Sepsis Screening Result: No Definite Risk - Focused Exam Vital Signs: Vital Signs Temp Pulse Resp BP Pulse Ox 03/17/21 12:46 36.6 C 64 16 87/47 L 99 03/17/21 09:40 36.4 C 77 16 124/73 97 - My Orders Last 24 Hours: My Active Orders 03/17/21 10:03 CHLAMYDIA AND GONORRHEA BY TMA Stat - Assessment/Plan Last 24 Hours: My Active Orders 03/17/21 10:03 CHLAMYDIA AND GONORRHEA BY TMA Stat
[2021-03-19 12:07] LABS: C.TRACHOMATIS BY TMA Negative (Negative); N.GONORRHOEAE BY TMA Negative (Negative)
== END 2021-03-17 13:03 | disposition home or self-care (01) ==
LOC: MW.ED 09:24
DX: N76.0 Acute vaginitis (principal); B96.89 Other specified bacterial agents as the cause of diseases classified elsewhere; A64 Unspecified sexually transmitted disease
CPT/HCPCS: 76830; 81003; 81025; 87480; 87491; 87510; 87591; 87660; 96372; 99284; A9270; J0696; 99283

== ENCOUNTER 2021-06-04 08:12 | Emergency (ER) | payer MEDICAID ==
--- NOTE | 2021-06-04 08:20 | EDM.PDOC ---
ED HPI GENERAL MEDICAL PROBLEM - General Chief Complaint: General Stated Complaint: SORE THROAT Time Seen by Provider: 06/04/21 08:15 Source of Information: Reports: Patient History Limitations: Reports: No Limitations - History of Present Illness INITIAL COMMENTS - FREE TEXT/NARRATIVE: 20-year-old female past medical history psychiatric problems presents for sore throat x2 to 3 days. Patient notes a nonproductive cough and some shortness of breath. She denies any chest pain or tightness. She denies any fevers. She denies difficulty swallowing but notes it is painful to swallow. Throat Pain Score (Numeric/FACES): 10 - Related Data Allergies Allergy/AdvReac Type Severity Reaction Status Date / Time No Known Allergies Allergy Verified 06/04/21 08:32 Home Meds: Home Meds . 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 ED EXAM, GENERAL - Physical Exam Exam: See Below Exam Limited By: No Limitations General Appearance: Alert, WD/WN, No Apparent Distress Ears: Hearing Grossly Normal Throat/Mouth: Normal Voice, No Airway Compromise, Other (Erythema of oropharynx without exudates or swelling) Head: Atraumatic, Normocephalic Neck: Normal Inspection Respiratory/Chest: No Respiratory Distress, Lungs Clear, Normal Breath Sounds, No Accessory Muscle Use Cardiovascular: Normal Peripheral Pulses, Regular Rate, Rhythm Extremities: Normal Inspection Neurological: Alert, Normal Cognition, Normal Gait Psychiatric: Normal Mood, Flat Affect Skin Exam: Warm, Dry, Intact, Normal Color Course - Vital Signs Last Recorded V/S: Last Vital Signs Temp 97.3 F 06/04/21 08:29 Pulse 76 06/04/21 08:29 Resp 20 06/04/21 08:29 BP 109/69 06/04/21 08:29 Pulse Ox 98 06/04/21 08:29 - Orders/Labs/Meds Labs: Laboratory Tests 06/04/21 06/04/21 Range/Units 10:15 10:15 SARS-CoV-2 RNA (TAO) NEGATIVE (NEGATIVE) Group A Strep (PCR) NOT DETECTED (NOT DETECT) Meds: Medications Discontinued Medications Generic Name Dose Route Start Last Admin Trade Name Fernando PRN Reason Stop Dose Admin Dexamethasone 6 mg 06/04/21 11:27 Dexamethasone 10 Mg/Ml Sdv IM 06/04/21 11:28 STAT STA - Re-Assessments/Exams Free Text/Narrative Re-Assessment/Exam: 06/04/21 08:39 We will get Covid and streptococcal pharyngitis swabs. 06/04/21 11:28 Swabs are negative. Will treat for viral pharyngitis with Decadron. Departure - Departure Time of Disposition: 11:29 Disposition: Home, Self-Care 01 Condition: Good Clinical Impression: Pharyngitis Qualifiers: Pharyngitis/tonsillitis etiology: unspecified etiology Qualified Code(s): J02.9 - Acute pharyngitis, unspecified - Discharge Information Instructions: Pharyngitis Referrals: PCP,None [Primary Care Provider] - Forms: ED Department Discharge Additional Instructions: The following information is given to patients seen in the emergency department who are being discharged to home. This information is to outline your options for follow-up care. We provide all patients seen in our emergency department with a follow-up referral. The need for follow-up, as well as the timing and circumstances, are variable depending upon the specifics of your emergency department visit. If you don't have a primary care physician on staff, we will provide you with a referral. We always advise you to contact your personal physician following an emergency department visit to inform them of the circumstance of the visit and for follow-up with them and/or the need for any referrals to a consulting specialist. The emergency department will also refer you to a specialist when appropriate. This referral assures that you have the opportunity for follow-up care with a specialist. All of these measure are taken in an effort to provide you with optimal care, which includes your follow-up. Under all circumstances we always encourage you to contact your private physician who remains a resource for coordinating your care. When calling for follow-up care, please make the office aware that this follow-up is from your recent emergency room visit. If for any reason you are refused follow-up, please contact the [facility] Emergency Department at and asked to speak to the emergency department charge nurse. Please follow up with your primary care physician. If you do not have a primary care physician, see below: [facility] [address] [place] [id number] [facility] [address] [place] [id number] [facility] [address] [place] [id number] Sepsis Event Note (ED) - Focused Exam Vital Signs: Vital Signs Temp Pulse Resp BP Pulse Ox 06/04/21 08:29 97.3 F 76 20 109/69 98
[2021-06-04] MEDS ORDERED: Dexamethasone 10 MG/ML SDV IM STA (11:27)
== END 2021-06-04 12:10 | disposition home or self-care (01) ==
LOC: MW.ED 08:12
DX: J02.9 Acute pharyngitis, unspecified (principal); Z20.822 Contact with and (suspected) exposure to COVID-19
CPT/HCPCS: 87635; 87651; 96372; 99283; J1100; U0002

== ENCOUNTER 2021-06-15 00:12 | Emergency (ER) | payer MEDICAID ==
--- NOTE | 2021-06-15 00:52 | EDM.PDOC ---
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 Left flank to left lower abdomen. Patient recently with a positive test about a week ago. No vomiting or diarrhea. No pain with urination. No vaginal bleeding. Patient with some whitish discharge but nothing yellow or green. No exacerbating or alleviating factors of this moderate discomfort Abdomen Pain Score (Numeric/FACES): 10 - Related Data Allergies Allergy/AdvReac Type Severity Reaction Status Date / Time No Known Allergies Allergy Verified 06/15/21 00:25 Home Meds: Home Meds . 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: Musculoskeletal History: Reports: None Neurological History: Reports: None Psychiatric History: Reports: Anxiety, Depression, Other (See Below) Other Psychiatric History: "brief 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" Hematologic History: Reports: None Immunologic History: Reports: None Oncologic (Cancer) History: Reports: None Dermatologic History: Reports: None - Infectious Disease History Infectious Disease History: Reports: None Social & Family History - Family History Family Medical History: No Pertinent Family History - Tobacco Use Tobacco Use Status *Q: Never Tobacco User Second Hand Smoke Exposure: No - Caffeine Use Caffeine Use: Reports: None - Recreational Drug Use Recreational Drug Use: No ED ROS GENERAL - Review of Systems Review Of Systems: See Below ED EXAM, GENERAL - Physical Exam Exam: See Below Free Text/Narrative:: CONSTITUTIONAL: well appearing in no acute distress SKIN: dry, and intact without rash HENT: Normocephalic, atraumatic, NECK: normal range of motion PULMONARY: normal chest rise and fall, no respiratory distress or stridor GI: Mild left lower quadrant abdominal pain and left flank tenderness NEUROLOGIC: normal speech, moves all extremities, grossly non-focal MUSCULOSKELETAL: no gross deformities, atraumatic PSYCHIATRIC: normal mood and affect Course - Vital Signs Text/Narrative:: Differential diagnosis: Kidney stone, UTI, ectopic , blighted ovum, other Patient presents to the emergency department with abdominal pain and . The pain is in the left lower quadrant. The patient's beta quant is greater than 29,000. This is trended upward from 912 in which the beta quant was 5618. The ultrasound shows a gestational sac but no yolk sac or pole. There is small to moderate free fluid. I spoke to Dr. Marroquin. This patient could have a miscarriage or ectopic . The patient be admitted for serial observation, laboratory testing and consideration of surgery after evaluation by FIRE LIEUTENANT MARINE Last Recorded V/S: Last Vital Signs Temp 36.6 C 06/15/21 00:19 Pulse 79 06/15/21 04:30 Resp 14 06/15/21 04:30 BP 112/59 L 06/15/21 04:30 Pulse Ox 97 06/15/21 04:30 - Orders/Labs/Meds Orders: Active Orders 24 hr Category Date Time Status Admission Status [Patient Status] [ADT] Stat ADT 06/15/21 04:15 Active NPO Now [Nothing per Oral Now Diet] [DIET] Diet 06/15/21 Breakfast Active CBC WITH AUTO DIFF [HEME] Routine Lab 06/15/21 08:00 Ordered CORONAVIRUS COVID-19 TAO [MOLEC] Stat Lab 06/15/21 04:25 Received Labs: Laboratory Tests 06/15/21 06/15/21 06/15/21 Range/Units 00:30 00:57 00:57 WBC 8.72 (4.0-11.0) K/uL RBC 4.08 L (4.30-5.90) M/uL Hgb 13.0 (12.0-16.0) g/dL Hct 37.6 (36.0-46.0) % MCV 92.2 (80.0-98.0) fL MCH 31.9 (27.0-32.0) pg MCHC 34.6 (31.0-37.0) g/dL RDW Std Deviation 39.8 (28.0-62.0) fl RDW Coeff of Silvino 12 (11.0-15.0) % Plt Count 282 (150-400) K/uL MPV 8.90 (7.40-12.00) fL Neut % (Auto) 57.2 (48.0-80.0) % Lymph % (Auto) 33.8 (16.0-40.0) % [place] % (Auto) 6.3 (0.0-15.0) % Eos % (Auto) 2.2 (0.0-7.0) % Baso % (Auto) 0.5 (0.0-1.5) % Neut # (Auto) 5.0 (1.4-5.7) K/uL Lymph # (Auto) 3.0 H (0.6-2.4) K/uL [place] # (Auto) 0.6 (0.0-0.8) K/uL Eos # (Auto) 0.2 (0.0-0.7) K/uL Baso # (Auto) 0.0 (0.0-0.1) K/uL Sodium 138 (136-145) mmol/L Potassium 3.6 (3.5-5.1) mmol/L Chloride 104 (98-107) mmol/L Carbon Dioxide 26.5 (21.0-32.0) mmol/L BUN 10 (7.0-18.0) mg/dL Creatinine 0.8 (0.6-1.0) mg/dL Est Cr Clr Drug Dosing 92.02 mL/min Estimated GFR (MDRD) > 60.0 ml/min Glucose 87 (74-106) mg/dL Calcium 8.5 (8.5-10.1) mg/dL Total Bilirubin 0.2 (0.2-1.0) mg/dL AST 13 L (15-37) IU/L ALT 15 (14-63) IU/L Alkaline Phosphatase 62 (46-116) U/L Total Protein 6.5 (6.4-8.2) g/dL Albumin 3.2 L (3.4-5.0) g/dL Globulin 3.3 (2.6-4.0) g/dL Albumin/Globulin Ratio 1.0 (0.9-1.6) HCG, Quant 59656.0 mIU/mL Urine Color YELLOW Urine Appearance CLEAR Urine pH 6.0 (5.0-8.0) Ur Specific [place] >= 1.030 (1.001-1.035) Urine Protein NEGATIVE (NEGATIVE) mg/dL Urine Glucose (UA) NEGATIVE (NEGATIVE) mg/dL Urine Ketones NEGATIVE (NEGATIVE) mg/dL Urine Occult Blood NEGATIVE (NEGATIVE) Urine Nitrite NEGATIVE (NEGATIVE) Urine Bilirubin NEGATIVE (NEGATIVE) Urine Urobilinogen 0.2 (<2.0) EU/dL Ur Leukocyte Esterase NEGATIVE (NEGATIVE) Meds: Medications Discontinued Medications Generic Name Dose Route Start Last Admin Trade Name Fernando PRN Reason Stop Dose Admin Acetaminophen 650 mg 06/15/21 03:13 06/15/21 03:26 Acetaminophen 325 Mg Tab PO 06/15/21 03:14 650 mg NOW ONE Administration Departure - Departure Time of Disposition: 05:09 Disposition: DC/Tfer W/I Hosp To Swing 61 Condition: Good Clinical Impression: Abdominal pain complicating - Discharge Information Referrals: PCP,None [Primary Care Provider] - Forms: ED Department Discharge Sepsis Event Note (ED) - Focused Exam Vital Signs: Vital Signs Temp Pulse Resp BP Pulse Ox 06/15/21 04:30 79 14 112/59 L 97 06/15/21 03:27 73 14 97/52 L 98 06/15/21 01:52 73 12 101/47 L 99 06/15/21 00:19 36.6 C 74 16 106/54 L 99 - My Orders Last 24 Hours: My Active Orders 06/15/21 04:15 Admission Status [Patient Status] [ADT] Stat 06/15/21 04:25 CORONAVIRUS COVID-19 TAO [MOLEC] Stat 06/15/21 Breakfast NPO Now [Nothing per Oral Now Diet] [DIET] 06/15/21 08:00 CBC WITH AUTO DIFF [HEME] Routine - Assessment/Plan Last 24 Hours: My Active Orders 06/15/21 04:15 Admission Status [Patient Status] [ADT] Stat 06/15/21 04:25 CORONAVIRUS COVID-19 TAO [MOLEC] Stat 06/15/21 Breakfast NPO Now [Nothing per Oral Now Diet] [DIET] 06/15/21 08:00 CBC WITH AUTO DIFF [HEME] Routine
[2021-06-15 01:49] LABS: BLOOD UREA NITROGEN,BUN 10 mg/dL (7.0-18.0); CARBON DIOXIDE,CO2 26.5 mmol/L (21.0-32.0); CHLORIDE,CL 104 mmol/L (98-107); GLUCOSE RANDOM 87 mg/dL (74-106); POTASSIUM,K 3.6 mmol/L (3.5-5.1); SODIUM,NA 138 mmol/L (136-145)
[2021-06-15] MEDS ORDERED: Acetaminophen 325 MG Tab PO ONE (03:13)
--- NOTE | 2021-06-15 03:18 | US ---
INDICATION: Left lower quadrant pain, positive test TECHNIQUE: Ultrasound OB pelvis transvaginal. Real-time dacosta-scale and color Doppler imaging of the pelvis was performed. COMPARISON: None FINDINGS: Sonographic imaging demonstrates a single intrauterine gestational sac. No pole identified. The mean gestational sac size of 1.5 cm corresponds to a gestational age of 6 weeks 2 days. Right ovary measures 5.1 x 5.6 x 5.4 cm. There is a 4.5 cm cyst right ovary. Left ovary measures 2.6 x 1.3 x 1.7 cm. There is blood flow in both ovaries. Small to moderate amount of free fluid in the pelvis. IMPRESSION: Single intrauterine gestational sac. No pole identified. Gestational age calculated at 6 weeks 2 days. There is a small to moderate amount of free fluid in the pelvis. No adnexal mass is identified. The empty gestational sac could potentially represent a pseudo sac and in the presence of free fluid in the pelvis ectopic cannot be entirely excluded. Recommend gynecology consultation. Simple cyst on the right ovary. Findings discussed with Dr. Man at 3:13 a.m. on June 15, 2021. Dictated by Melony Topete MD @ 06/15/2021 3:16:07 AM (Electronically Signed)
== END 2021-06-15 06:15 | disposition other institution (70) ==
LOC: MW.ED 00:12
DX: O99.891 Other specified diseases and conditions complicating pregnancy (principal); R10.32 Left lower quadrant pain; Z3A.00 Weeks of gestation of pregnancy not specified; Z20.822 Contact with and (suspected) exposure to COVID-19
CPT/HCPCS: 36415; 76801; 80053; 81003; 84702; 85025; 87635; 99285; A9270; U0002

== ENCOUNTER 2021-06-15 04:32 | Observation (INO) | payer MEDICAID ==
[2021-06-15] MEDS ORDERED: Propofol 200 MG/20 ML SDV ONE (08:23)
[2021-06-15] MEDS ORDERED: fentaNYL 250 MCG/5 ML SDV ONE (08:23)
--- NOTE | 2021-06-15 08:43 | PCM.PREANE ---
Preanesthetic Assessment - Anesthesia/Transfusion/Family Hx Anesthesia History: No Prior Anesthesia Family History of Anesthesia Reaction: No Transfusion History: No Prior Transfusion(s) - Review of Systems General: No Symptoms Pulmonary: Other (prior smoker) Cardiovascular: No Symptoms, Other (pt states to being able to walk up 2 flight steps with no SOB/CP) Gastrointestinal: No Symptoms, Other (Current possibly ectopic.) Neurological: No Symptoms Other: Reports: None - Physical Assessment NPO Status Date: 06/15/21 NPO Status Time: 00:00 Vital Signs: Last Vital Signs Temp 36.9 C 06/15/21 08:03 Pulse 63 06/15/21 08:03 Resp 16 06/15/21 08:03 BP 123/57 L 06/15/21 08:03 Pulse Ox 98 06/15/21 08:03 Height: 1.6 m Weight: 55.837 kg ASA Class: 2E Mental Status: Alert & Oriented x3 Airway Class: Mallampati = 2 Dentition: Reports: Normal Dentition Thyro-Mental Finger Breadths: 3 Mouth Opening Finger Breadths: 3 ROM/Head Extension: Full Lungs: Clear to Auscultation, Normal Respiratory Effort Cardiovascular: Regular Rate, Regular Rhythm - Lab Values: Laboratory Last Values WBC 7.68 K/uL (4.0-11.0) 06/15/21 07:49 RBC 4.04 M/uL (4.30-5.90) L 06/15/21 07:49 Hgb 12.8 g/dL (12.0-16.0) 06/15/21 07:49 Hct 36.5 % (36.0-46.0) 06/15/21 07:49 MCV 90.3 fL (80.0-98.0) 06/15/21 07:49 MCH 31.7 pg (27.0-32.0) 06/15/21 07:49 MCHC 35.1 g/dL (31.0-37.0) 06/15/21 07:49 RDW Std Deviation 41.3 fl (28.0-62.0) 06/15/21 07:49 RDW Coeff of Silvino 13 % (11.0-15.0) 06/15/21 07:49 Plt Count 288 K/uL (150-400) 06/15/21 07:49 MPV 8.90 fL (7.40-12.00) 06/15/21 07:49 Neut % (Auto) 51.7 % (48.0-80.0) 06/15/21 07:49 Lymph % (Auto) 37.9 % (16.0-40.0) 06/15/21 07:49 [place] % (Auto) 7.6 % (0.0-15.0) 06/15/21 07:49 Eos % (Auto) 2.3 % (0.0-7.0) 06/15/21 07:49 Baso % (Auto) 0.5 % (0.0-1.5) 06/15/21 07:49 Neut # (Auto) 4.0 K/uL (1.4-5.7) 06/15/21 07:49 Lymph # (Auto) 2.9 K/uL (0.6-2.4) H 06/15/21 07:49 [place] # (Auto) 0.6 K/uL (0.0-0.8) 06/15/21 07:49 Eos # (Auto) 0.2 K/uL (0.0-0.7) 06/15/21 07:49 Baso # (Auto) 0.0 K/uL (0.0-0.1) 06/15/21 07:49 Nucleated RBC % 0.0 /100WBC 06/15/21 07:49 Nucleated RBCs # 0 K/uL 06/15/21 07:49 Blood Type O POSITIVE 06/15/21 07:49 Antibody Screen NEGATIVE 06/15/21 07:49 - Allergies Allergies/Adverse Reactions: Allergies Allergy/AdvReac Type Severity Reaction Status Date / Time No Known Allergies Allergy Verified 06/15/21 06:20 - Blood Blood Available: No Product(s) Available: None - Anesthesia Plan Pre-Op Medication Ordered: None - Acknowledgements Anesthesia Type Planned: General Anesthesia Pt an Appropriate Candidate for the Planned Anesthesia: Yes Alternatives and Risks of Anesthesia Discussed w Pt/Guardian: Yes Pt/Guardian Understands and Agrees with Anesthesia Plan: Yes PreAnesthesia Questionnaire - Past Health History Medical/Surgical History: Denies Medical/Surgical History HEENT History: Reports: None Cardiovascular History: Reports: None Respiratory History: Reports: Bronchitis, Recurrent Gastrointestinal History: Reports: None Genitourinary History: Reports: STD, UTI, Recurrent 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 MANAGER 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: Reports: Musculoskeletal History: Reports: None Neurological History: Reports: Concussion Psychiatric History: Reports: Anxiety, Depression, Other (See Below) Other Psychiatric History: "brief 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" Endocrine/Metabolic History: Reports: Other (See Below) Other Endocrine/Metabolic History: gestational diabetes first Hematologic History: Reports: None Immunologic History: Reports: None Oncologic (Cancer) History: Reports: None Dermatologic History: Reports: None - Infectious Disease History Infectious Disease History: Reports: None - SUBSTANCE USE Tobacco Use Status *Q: Former Tobacco User Second Hand Smoke Exposure: Yes Recreational Drug Use History: No - HOME MEDS Home Medications: Home Meds . [No Known Home Meds] 06/04/21 [History] - CURRENT (IN HOUSE) MEDS Current Meds: Current Medications Discontinued Medications Fentanyl (Fentanyl 250 Mcg/5 Ml Sdv) Confirm Administered Dose 250 mcg .ROUTE .S TK-MED ONE Stop: 06/15/21 08:24 Propofol (Propofol 200 Mg/20 Ml Sdv) Confirm Administered Dose 200 mg .ROUTE .STK-MED ONE Stop: 06/15/21 08:24
== END 2021-06-15 10:45 | disposition home or self-care (01) ==
LOC: MW.OBCHECK 04:32 → MW.MS 05:43 → MW.OBCHECK 06:18 → MW.MS 07:35
PROVIDERS: ADMIT Obstetrics & Gynecology; ATTEND Obstetrics & Gynecology
DX: O00.90 Unspecified ectopic pregnancy without intrauterine pregnancy (principal); Z53.09 Procedure and treatment not carried out because of other contraindication
CPT/HCPCS: 36415; 85025; 86850; 86900; 86901; G0378; J2704; J3010

== ENCOUNTER 2021-06-28 01:53 | Emergency (ER) | payer OTHER, MEDICAID ==
--- NOTE | 2021-06-28 03:44 | EDM.PDOC ---
ED HPI GENERAL MEDICAL PROBLEM - General Chief Complaint: ENT Problem Stated Complaint: COUGH AND SORE THROAT Time Seen by Provider: 06/28/21 03:27 - History of Present Illness INITIAL COMMENTS - FREE TEXT/NARRATIVE: HISTORY AND PHYSICAL: History of present illness: This a 20-year-old female who presents ER today secondary to myalgias, tactile fevers, sore throat and concern that she went about Covid infection secondary to exposure. Patient denies any recent shakes, chills, nausea, vomiting, diarrhea, dysuria, frequency, urgency. Patient has abdominal pain or chest pain. Patient reports she is but is not sure of how long she has. Patient has any vaginal discharge or bleeding. Patient denies any abdominal cramping. Review of systems: As per history of present illness and below otherwise all systems reviewed and negative. Past medical history: As per history of present illness and as reviewed below otherwise noncontributory. Surgical history: As per history of present illness and as reviewed below otherwise noncontributory. Social history: No reported history of drug abuse. Family history: As per history of present illness and as reviewed below otherwise noncontributory. Physical exam: This patient was seen and evaluated during the 2019 SARS-CoV-2 novel coronavirus pandemic period. Community viral transmission is ongoing at time of this encounter and the emergency department is operating under pandemic response procedures. Constitutional: Patient is oriented to person, place, and time. Appears well- developed and well-nourished. No distress. HEENT: Moist mucous membranes Head: Normocephalic and atraumatic Eyes: Right eye exhibits no discharge. Left eye exhibits no discharge. No scleral icterus Neck: Normal range of motion. No tracheal deviation present. Cardiovascular: Normal rate and regular rhythm. Pulmonary: Effort normal, no respiratory distress. Abdominal: No distention Musculoskeletal: Normal range of motion Neurologic: Alert and oriented to person, place and time. Skin: [place], warm and dry. Psychiatric: Normal mood and affect. Behavior is normal. Judgment and thought content normal. Nursing note and vital signs have been reviewed Oropharynx is clear without any exudates. Patient has no tender no adenopathy. Patient's lungs are clear with any wheezing rales or rhonchi. Diagnostics: Covid negative strep screen negative Therapeutics: [] Assessment and plan: 20-year-old female who presents ER today wanting evaluation for possible Covid secondary to exposure. Patient is clinically and hemodynamically stable here in the ED. Patient's pulse ox is 99% on room air. Patient stable for discharge and continued outpatient evaluation with her primary care doctor in the morning. Patient is I recommend that she follow-up with [facility] for further evaluation. She will be given the phone number. Reassessment at the time of disposition demonstrates that the patient is in no acute distress. The patient has remained stable throughout the entire ED visit and is without objective evidence for acute process requiring urgent intervention or hospitalization. The patient is stable for discharge, counseling is provided as documented above, discussed symptomatic treatment and specific conditions for return. I have spoken with the patient/caregiver and discussed todays findings, in addition to providing specific details for the plan of care. Questions are answered and there is agreement with the plan. Definitive disposition and diagnosis as appropriate pending reevaluation and review of above. generalized Pain Score (Numeric/FACES): 5 - Related Data Allergies Allergy/AdvReac Type Severity Reaction Status Date / Time No Known Allergies Allergy Verified 06/28/21 02:11 Home Meds: Home Meds . [No Known Home Meds] 06/04/21 [History] Past Medical History - Past Health History Medical/Surgical History: Denies Medical/Surgical History HEENT History: Reports: None Cardiovascular History: Reports: None Respiratory History: Reports: Bronchitis, Recurrent Gastrointestinal History: Reports: None Genitourinary History: Reports: STD, UTI, Recurrent BACK MAKER History: Reports: Musculoskeletal History: Reports: None Neurological History: Reports: Concussion Psychiatric History: Reports: Anxiety, Depression, Other (See Below) Other Psychiatric History: "brief 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" Endocrine/Metabolic History: Reports: Other (See Below) Other Endocrine/Metabolic History: gestational diabetes first Hematologic History: Reports: None Immunologic History: Reports: None Oncologic (Cancer) History: Reports: None Dermatologic History: Reports: None - Infectious Disease History Infectious Disease History: Reports: None Social & Family History - Family History Family Medical History: No Pertinent Family History - Caffeine Use Caffeine Use: Reports: None ED ROS GENERAL - Review of Systems Review Of Systems: See Below ED EXAM, GENERAL - Physical Exam Exam: See Below Course - Vital Signs Last Recorded V/S: Last Vital Signs Temp 97.2 F 06/28/21 02:11 Pulse 80 06/28/21 02:11 Resp 18 06/28/21 02:11 BP 102/62 06/28/21 02:11 Pulse Ox 97 06/28/21 02:11 - Orders/Labs/Meds Labs: Laboratory Tests 06/28/21 06/28/21 Range/Units 02:25 02:25 SARS-CoV-2 RNA (TAO) NEGATIVE (NEGATIVE) Group A Strep (PCR) NOT DETECTED (NOT DETECT) Departure - Departure Time of Disposition: 03:43 Disposition: Home, Self-Care 01 Condition: Good Clinical Impression: Viral illness - Discharge Information Instructions: Viral Illness, Adult Referrals: Sabino Barnard MD [Primary Care Provider] - Additional Instructions: Your Covid test and strep screen were both negative. Your symptoms may be secondary to a viral illness. You can take Tylenol as needed for body aches and fevers. You will be given the phone number for the [facility] doctor so that he can follow-up with them for your related issues. [facility] [address] [place] [address] [id number] [facility] [address] [place] [id number] The following information is given to patients seen in the emergency department who are being discharged to home. This information is to outline your options for follow-up care. We provide all patients seen in our emergency department with a follow-up referral. The need for follow-up, as well as the timing and circumstances, are variable depending upon the specifics of your emergency department visit. If you don't have a primary care physician on staff, we will provide you with a referral. We always advise you to contact your personal physician following an emergency department visit to inform them of the circumstance of the visit and for follow-up with them and/or the need for any referrals to a consulting specialist. The emergency department will also refer you to a specialist when appropriate. This referral assures that you have the opportunity for follow-up care with a specialist. All of these measure are taken in an effort to provide you with optimal care, which includes your follow-up. Under all circumstances we always encourage you to contact your private physician who remains a resource for coordinating your care. When calling for follow-up care, please make the office aware that this follow-up is from your recent emergency room visit. If for any reason you are refused follow-up, please contact the [facility] Emergency Department at and asked to speak to the emergency department charge nurse. [facility] - [facility] [address] [place] [id number] [facility] [address] [place] [id number] Sepsis Event Note (ED) - Focused Exam Vital Signs: Vital Signs Temp Pulse Resp BP Pulse Ox 06/28/21 02:11 97.2 F 80 18 102/62 97
== END 2021-06-28 03:45 | disposition home or self-care (01) ==
LOC: MW.ED 01:53
DX: B34.9 Viral infection, unspecified (principal); Z20.822 Contact with and (suspected) exposure to COVID-19
CPT/HCPCS: 87651-QW; 99282; 99283; U0002

== ENCOUNTER 2021-07-06 23:13 | Emergency (ER) | payer MEDICAID, OTHER ==
--- NOTE | 2021-07-06 23:50 | EDM.PDOC ---
ED HPI GENERAL MEDICAL PROBLEM - General Chief Complaint: Abdominal Pain Stated Complaint: BACK PAIN, ABDOMINAL PAIN Time Seen by Provider: 07/06/21 23:48 Source of Information: Reports: Patient History Limitations: Reports: No Limitations - History of Present Illness INITIAL COMMENTS - FREE TEXT/NARRATIVE: 20-year-old female G2, P1, [place] 8 weeks 2 days presents with lower abdominal cramping that started on Thursday. Cramping is rated 10/10, waxes and wanes associated with nausea. She denies fever, chills, vaginal bleeding, dysuria, vomiting and diarrhea. 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 Marroquin. ROS: A 10-point review of systems, other than pertinent positives and negatives as stated per HPI, is otherwise negative Past medical history: No additional pertinent history Past Surgical history: No additional pertinent history Social history: No additional pertinent history Family history: No additional pertinent history PHYSICAL EXAM General: AOx4, GCS = 15, No distress HEENT: dry mucous membrane Neck: supple, no meningismus, no Kernig or Brudzinski Cardiac: S1S2 RRR Respiratory: CTAB, no crackles or rales, no wheezing Abdomen: Soft, nontender, no rebound or guarding, nondistended, no pulsatile mass. Back: nontender Musculoskeletal: NVI distally, no deformity Neuro: No focal deficits, CN 2 - 12 WNL. - Related Data Allergies Allergy/AdvReac Type Severity Reaction Status Date / Time No Known Allergies Allergy Verified 06/28/21 02:11 Home Meds: Home Meds . [No Known Home Meds] 06/04/21 [History] Past Medical History - Past Health History Medical/Surgical History: Denies Medical/Surgical History HEENT History: Reports: None Cardiovascular History: Reports: None Respiratory History: Reports: Bronchitis, Recurrent Gastrointestinal History: Reports: None Genitourinary History: Reports: STD, UTI, Recurrent SPLITTING MACHINE TENDER History: Reports: Musculoskeletal History: Reports: None Neurological History: Reports: Concussion Psychiatric History: Reports: Anxiety, Depression, Other (See Below) Other Psychiatric History: "brief 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" Endocrine/Metabolic History: Reports: Other (See Below) Other Endocrine/Metabolic History: gestational diabetes first Insulin Pump Model and Wrapping Machine Tender: None Hematologic History: Reports: None Immunologic History: Reports: None Oncologic (Cancer) History: Reports: None Dermatologic History: Reports: None - Infectious Disease History Infectious Disease History: Reports: None - Past Surgical History Head Surgeries/Procedures: Reports: None Social & Family History - Family History Family Medical History: No Pertinent Family History - Caffeine Use Caffeine Use: Reports: None ED ROS GENERAL - Review of Systems Review Of Systems: See Below (see dictation) ED EXAM, GENERAL - Physical Exam Exam: See Below (n) Course - Orders/Labs/Meds Orders: Active Orders 24 hr Category Date Time Status UA RFX SARA AND CULT IF INDIC [URIN] Stat Lab 07/06/21 23:46 Ordered - Re-Assessments/Exams Free Text/Narrative Re-Assessment/Exam: 07/06/21 23:48 I assessed the patient in the waiting room due to the lack of capacity in the main ED as compounded by the global COVID-19 pandemic. Orders were placed to expedite patient care. 07/07/21 01:27 Patient is choosing to leave against medical advice. I personally explained to the patient that choosing to do so may result in permanent bodily harm or . I discussed at great length that without further evaluation and monitoring there may be unforeseen circumstances and deterioration causing permanent bodily harm or as a result of their choice. The patient is alert, oriented, and competent at this time. The patient states that they are aware of the serious risks as explained, but they still choose to leave against medical advice. The patient is aware that they did not allow us to complete their evaluation, and there is still the possibility that an emergency condition could exist. This has been thoroughly explained to the patient and the patient has indicated your understanding of such. The patient is assuming all risk and liability for such a condition, or for such a condition subsequently developing. The patient is doing so at their own free will, with a full knowledge of the potential consequences of these actions. The patient was encouraged to return at any time should they experience any changes about evaluation, or should they develop any new or worsening symptoms that concerns them. Departure - Departure Time of Disposition: :27 Disposition: Against Medical Advice 07 Clinical Impression: Threatened in first trimester, Left against medical advice - Discharge Information Instructions: Threatened Miscarriage Referrals: PCP,None [Primary Care Provider] - Forms: ED Department Discharge Additional Instructions: The need for follow-up, as well as the timing and circumstances, are variable depending upon the specifics of your emergency department visit. If you don't have a primary care physician on staff, we will provide you with a referral. We always advise you to contact your personal physician following an emergency department visit to inform them of the circumstance of the visit and for follow-up with them and/or the need for any referrals to a consulting specialist. The emergency department will also refer you to a specialist when appropriate. This referral assures that you have the opportunity for follow-up care with a specialist. All of these measure are taken in an effort to provide you with optimal care, which includes your follow-up. Under all circumstances we always encourage you to contact your private physician who remains a resource for coordinating your care. When calling for follow-up care, please make the office aware that this follow-up is from your recent emergency room visit. If for any reason you are refused follow-up, please contact the [facility] Emergency Department at and asked to speak to the emergency department charge nurse. If you do not have a primary care doctor, please follow up with the clinics below within 3-[address] [facility] - Primary Care [address] [place] [address] [place] [address] - My Orders Last 24 Hours: My Active Orders 07/06/21 23:46 UA RFX SARA AND CULT IF INDIC [URIN] Stat - Assessment/Plan Last 24 Hours: My Active Orders 07/06/21 23:46 UA RFX SARA AND CULT IF INDIC [URIN] Stat
== END 2021-07-07 01:15 | disposition left against medical advice (07) ==
LOC: MW.ED 23:13
DX: O20.0 Threatened abortion (principal); Z3A.08 8 weeks gestation of pregnancy
CPT/HCPCS: 99283

== ENCOUNTER 2021-07-07 13:22 | Emergency (ER) | payer OTHER, MEDICAID ==
--- NOTE | 2021-07-07 14:02 | EDM.PDOC ---
ED HPI GENERAL MEDICAL PROBLEM - General Chief Complaint: Abdominal Pain Stated Complaint: SEVERE HEADACHES/ ABDOMINAL CRAMPING Time Seen by Provider: 07/07/21 13:35 - History of Present Illness INITIAL COMMENTS - FREE TEXT/NARRATIVE: History of present illness: [] This patient who is 8 weeks said that she had ultrasound on 01 July 2021 since last one available to me. At that time heart tones were seen and she was 7 weeks . The patient has abdominal pain for the last few days and has intermittent headaches ever since she found out she was in May. Patient abdominal pain is sharp intermittent and happens every 10 minutes but lasts only a few seconds. Nothing makes it better or worse. There is no vomiting diarrhea or dysuria. Patient does have nausea and somewhat diminished appetite. The patient is G2, P1 Ab0. Review of systems: As per history of present illness and below otherwise all systems reviewed and negative. Past medical history: As per history of present illness and as reviewed below otherwise noncontributory. Surgical history: As per history of present illness and as reviewed below otherwise noncontributory. Social history: No reported history of drug or alcohol abuse. Family history: As per history of present illness and as reviewed below otherwise noncontributory. Physical exam: Constitutional - well developed, well-nourished and in no acute distress HEENT - normocephalic, no evidence of trauma - external nose and mouth normal - no mass in neck and no JVD - mucosae moist EYES - full EOM, PERRL, no icterus - no evidence of inflammation, injection, or drainage Respiratory - no respiratory distress, equal bilateral expansion, lungs clear to auscultation and no abnormal lung sounds Cardiovascular - Regular Rhythm with S1 and S2 appreciated and no murmur, gallop or rub. GI - abdomen soft without distension or organomegaly - normal bowel sounds - no guard or rebound Musculoskeletal no gross deformity of long bones or joints - no tenderness, swelling or edema Neurologic - Alert and oriented times four - CN II-XII grossly intact - motor sensory and coordination symmetrically normal Psychiatric - appropriate mood and affect with normal thought content Hematologic - No petechiae or purpura - mucosa appropriate color and sclera not pale - normal nail bed color and refill Integument - no rash or evidence of trauma - normal turgor Diagnostics: [] Therapeutics: [] Impression: [] Plan: [] Definitive disposition and diagnosis as appropriate pending reevaluation and review of above. bilateral abd pain Pain Score (Numeric/FACES): 7 - Related Data Allergies Allergy/AdvReac Type Severity Reaction Status Date / Time No Known Allergies Allergy Verified 07/07/21 13:51 Home Meds: Home Meds . 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" Endocrine/Metabolic History: Reports: Other (See Below) Other Endocrine/Metabolic History: gestational diabetes first Insulin Pump Model and Dough Cutting Machine Operator: None Hematologic History: Reports: None Immunologic History: Reports: None Oncologic (Cancer) History: Reports: None Dermatologic History: Reports: None - Infectious Disease History Infectious Disease History: Reports: None - Past Surgical History Head Surgeries/Procedures: Reports: None Social & Family History - Family History Family Medical History: No Pertinent Family History - Caffeine Use Caffeine Use: Reports: None ED ROS GENERAL - Review of Systems Review Of Systems: Comprehensive ROS is negative, except as noted in HPI. ED EXAM, GENERAL - Physical Exam Exam: See Below Free Text/Narrative:: My physical exam is in the HPI Course - Vital Signs Text/Narrative:: Discussed with Virginia Sloan that 4:08 PM and she said she was comfortable with the diagnosis of broad ligament pain and this is more common with future pregnancies and with the first 1. Patient is to avoid constipation use stool softeners as needed rest and heat. Last Recorded V/S: Last Vital Signs Temp 36.3 C 07/07/21 13:48 Pulse 65 07/07/21 15:47 Resp 16 07/07/21 15:47 BP 108/57 L 07/07/21 15:47 Pulse Ox 98 07/07/21 15:47 - Orders/Labs/Meds Labs: Laboratory Tests 07/07/21 07/07/21 07/07/21 Range/Units 13:44 14:17 14:17 WBC 6.75 (4.0-11.0) K/uL RBC 4.11 L (4.30-5.90) M/uL Hgb 13.2 (12.0-16.0) g/dL Hct 36.8 (36.0-46.0) % MCV 89.5 (80.0-98.0) fL MCH 32.1 H (27.0-32.0) pg MCHC 35.9 (31.0-37.0) g/dL RDW Std Deviation 40.1 (28.0-62.0) fl RDW Coeff of Silvino 13 (11.0-15.0) % Plt Count 259 (150-400) K/uL MPV 9.20 (7.40-12.00) fL Neut % (Auto) 59.9 (48.0-80.0) % Lymph % (Auto) 29.9 (16.0-40.0) % [place] % (Auto) 5.9 (0.0-15.0) % Eos % (Auto) 3.7 (0.0-7.0) % Baso % (Auto) 0.6 (0.0-1.5) % Neut # (Auto) 4.0 (1.4-5.7) K/uL Lymph # (Auto) 2.0 (0.6-2.4) K/uL [place] # (Auto) 0.4 (0.0-0.8) K/uL Eos # (Auto) 0.3 (0.0-0.7) K/uL Baso # (Auto) 0.0 (0.0-0.1) K/uL Nucleated RBC % 0.0 /100WBC Nucleated RBCs # 0 K/uL Sodium 137 (136-145) mmol/L Potassium 3.5 (3.5-5.1) mmol/L Chloride 101 (98-107) mmol/L Carbon Dioxide 24.2 (21.0-32.0) mmol/L BUN 8 (7.0-18.0) mg/dL Creatinine 0.7 (0.6-1.0) mg/dL Est Cr Clr Drug Dosing 105.16 mL/min Estimated GFR (MDRD) > 60.0 ml/min Glucose 113 H (74-106) mg/dL Calcium 8.0 L (8.5-10.1) mg/dL Total Bilirubin 0.2 (0.2-1.0) mg/dL AST 13 L (15-37) IU/L ALT 12 L (14-63) IU/L Alkaline Phosphatase 58 (46-116) U/L Total Protein 6.4 (6.4-8.2) g/dL Albumin 2.8 L (3.4-5.0) g/dL Globulin 3.6 (2.6-4.0) g/dL Albumin/Globulin Ratio 0.8 L (0.9-1.6) Lipase 69 L (73-393) U/L Urine Color YELLOW Urine Appearance CLEAR Urine pH 7.5 (5.0-8.0) Ur Specific [place] 1.020 (1.001-1.035) Urine Protein NEGATIVE (NEGATIVE) mg/dL Urine Glucose (UA) NEGATIVE (NEGATIVE) mg/dL Urine Ketones NEGATIVE (NEGATIVE) mg/dL Urine Occult Blood NEGATIVE (NEGATIVE) Urine Nitrite NEGATIVE (NEGATIVE) Urine Bilirubin NEGATIVE (NEGATIVE) Urine Urobilinogen 0.2 (<2.0) EU/dL Ur Leukocyte Esterase NEGATIVE (NEGATIVE) Departure - Departure Time of Disposition: 16:08 Disposition: Home, Self-Care 01 Condition: Good Clinical Impression: Broad ligament pain - Discharge Information Instructions: Round Ligament Pain Referrals: PCP,None [Primary Care Provider] - Forms: ED Department Discharge Additional Instructions: Make sure you avoid constipation. Use stool softener and plenty of liquids. [facility] [place] [address] The following information is given to patients seen in the emergency department who are being discharged to home. This information is to outline your options for follow-up care. We provide all patients seen in our emergency department with a follow-up referral. The need for follow-up, as well as the timing and circumstances, are variable depending upon the specifics of your emergency department visit. If you don't have a primary care physician on staff, we will provide you with a referral. We always advise you to contact your personal physician following an emergency department visit to inform them of the circumstance of the visit and for follow-up with them and/or the need for any referrals to a consulting specialist. The emergency department will also refer you to a specialist when appropriate. This referral assures that you have the opportunity for follow-up care with a specialist. All of these measure are taken in an effort to provide you with optimal care, which includes your follow-up. Under all circumstances we always encourage you to contact your private physician who remains a resource for coordinating your care. When calling for follow-up care, please make the office aware that this follow-up is from your recent emergency room visit. If for any reason you are refused follow-up, please contact the [facility] Emergency Department at and asked to speak to the emergency department charge nurse. Sepsis Event Note (ED) - Evaluation Sepsis Screening Result: No Definite Risk - Focused Exam Vital Signs: Vital Signs Temp Pulse Resp BP Pulse Ox 07/07/21 15:47 65 16 108/57 L 98 07/07/21 13:48 36.3 C 72 18 107/58 L 94 L
[2021-07-07 15:02] LABS: BLOOD UREA NITROGEN,BUN 8 mg/dL (7.0-18.0); CARBON DIOXIDE,CO2 24.2 mmol/L (21.0-32.0); CHLORIDE,CL 101 mmol/L (98-107); GLUCOSE RANDOM 113 mg/dL (74-106); LIPASE 69 U/L (73-393); POTASSIUM,K 3.5 mmol/L (3.5-5.1); SODIUM,NA 137 mmol/L (136-145)
== END 2021-07-07 16:31 | disposition home or self-care (01) ==
LOC: MW.ED 13:22
DX: O99.891 Other specified diseases and conditions complicating pregnancy (principal); R10.2 Pelvic and perineal pain; Z3A.08 8 weeks gestation of pregnancy
CPT/HCPCS: 36415; 80053; 81003; 83690; 85025; 99284

== ENCOUNTER 2021-08-16 02:19 | Emergency (ER) | payer MEDICAID, OTHER ==
--- NOTE | 2021-08-16 03:24 | EDM.PDOC ---
ED HPI GENERAL MEDICAL PROBLEM - General Chief Complaint: SEISMOGRAPHER Problem Stated Complaint: 14 WEEKS - BLEEDING Time Seen by Provider: 08/16/21 02:52 - History of Present Illness INITIAL COMMENTS - FREE TEXT/NARRATIVE: HISTORY AND PHYSICAL: History of present illness: This is a 2 para one 20-year-old female who presents ER today secondary to vaginal bleeding that started 2 AM tonight. Patient denies any recent fevers, shakes and chills, nausea, vomiting, diarrhea, dysuria, frequency, urgency. Patient SEISMOGRAPHER doctors Dr. marroquin. Patient reports that she did have an ultrasound at 12 weeks that revealed a IUP. Patient reports that she passed a significant mount of bleeding this evening which is atypical for her. Review of systems: As per history of present illness and below otherwise all systems reviewed and negative. Past medical history: As per history of present illness and as reviewed below otherwise noncontributory. Surgical history: As per history of present illness and as reviewed below otherwise noncontributory. Social history: No reported history of drug abuse. Family history: As per history of present illness and as reviewed below otherwise noncontributory. Physical exam: This patient was seen and evaluated during the 2019 SARS-CoV-2 novel coronavirus pandemic period. Community viral transmission is ongoing at time of this encounter and the emergency department is operating under pandemic response procedures. Constitutional: Patient is oriented to person, place, and time. Appears well- developed and well-nourished. No distress. HEENT: Moist mucous membranes Head: Normocephalic and atraumatic Eyes: Right eye exhibits no discharge. Left eye exhibits no discharge. No scleral icterus Neck: Normal range of motion. No tracheal deviation present. Cardiovascular: Normal rate and regular rhythm. Pulmonary: Effort normal, no respiratory distress. Abd: Soft, nondistended, no rebound/guarding, no psoas or obturator signs, no tenderness at Mcberney's point, no Wilhelm's sign. Pt does not present with an exam that would be consistent with an acute surgical abdomen at this time. Mild suprapubic tenderness to palpation. Musculoskeletal: Normal range of motion Neurologic: Alert and oriented to person, place and time. Skin: [place], warm and dry. Psychiatric: Normal mood and affect. Behavior is normal. Judgment and thought content normal. Nursing note and vital signs have been reviewed Diagnostics: Ultrasound reveals a single live intrauterine gestation with a clinical age of 14 weeks 1 day. There is a posterior placenta without gestational bleed. Subjectively normal amniotic fluid. CBC/CMP within normal limits. Urinalysis unremarkable. Patient is O+ Assessment and plan: 20-year-old female who presents ER today with abnormal vaginal bleeding while approximately 14 weeks by dates. Patient have an ultrasound of her pelvis to assess status and concern for abruption/previa. 5:57 AM: Ultrasound reviewed without any significant abnormality. Results have been reviewed with the patient and patient has been instructed to follow-up with Dr. Marroquin in the next 1 to 2 days for reevaluation. Reassessment at the time of disposition demonstrates that the patient is in no acute distress. The patient has remained stable throughout the entire ED visit and is without objective evidence for acute process requiring urgent int ervention or hospitalization. The patient is stable for discharge, counseling is provided as documented above, discussed symptomatic treatment and specific conditions for return. I have spoken with the patient/caregiver and discussed todays findings, in addition to providing specific details for the plan of care. Questions are answered and there is agreement with the plan. Definitive disposition and diagnosis as appropriate pending reevaluation and review of above. I level abdominal cramping Pain Score (Numeric/FACES): 3 - Related Data Allergies Allergy/AdvReac Type Severity Reaction Status Date / Time No Known Allergies Allergy Verified 08/16/21 02:42 Home Meds: Home Meds Pnv No.121/Iron/Folic Acid [ Multivitamin Tablet] 1 each PO DAILY 08/16/21 [History] Past Medical History - Past Health History Medical/Surgical History: Denies Medical/Surgical History HEENT History: Reports: None Cardiovascular History: Reports: None Respiratory History: Reports: Bronchitis, Recurrent Gastrointestinal History: Reports: None Genitourinary History: Reports: STD, UTI, Recurrent SEISMOGRAPHER History: Reports: Musculoskeletal History: Reports: None Neurological History: Reports: Concussion Psychiatric History: Reports: Anxiety, Depression Other Psychiatric History: "brief 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" Endocrine/Metabolic History: Reports: Other (See Below) Other Endocrine/Metabolic History: gestational diabetes first Insulin Pump Model and 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: N/A Hematologic History: Reports: None Immunologic History: Reports: None Oncologic (Cancer) History: Reports: None Dermatologic History: Reports: None - Infectious Disease History Infectious Disease History: Reports: None - Past Surgical History Head Surgeries/Procedures: Reports: None Social & Family History - Family History Family Medical History: No Pertinent Family History - Caffeine Use Caffeine Use: Reports: None - Recreational Drug Use Recreational Drug Use: No ED ROS GENERAL - Review of Systems Review Of Systems: See Below ED EXAM, GENERAL - Physical Exam Exam: See Below Course - Vital Signs Last Recorded V/S: Last Vital Signs Temp 97.2 F 08/16/21 06:10 Pulse 84 08/16/21 06:10 Resp 18 08/16/21 06:10 BP 101/64 08/16/21 06:10 Pulse Ox 98 08/16/21 06:10 - Orders/Labs/Meds Labs: Laboratory Tests 08/16/21 08/16/21 08/16/21 Range/Units 02:40 02:40 03:25 WBC 10.37 (4.0-11.0) K/uL RBC 3.83 L (4.30-5.90) M/uL Hgb 12.3 (12.0-16.0) g/dL Hct 34.5 L (36.0-46.0) % MCV 90.1 (80.0-98.0) fL MCH 32.1 H (27.0-32.0) pg MCHC 35.7 (31.0-37.0) g/dL RDW Std Deviation 41.5 (28.0-62.0) fl RDW Coeff of Silvino 13 (11.0-15.0) % Plt Count 238 (150-400) K/uL MPV 8.90 (7.40-12.00) fL Neut % (Auto) 69.7 (48.0-80.0) % Lymph % (Auto) 21.4 (16.0-40.0) % [place] % (Auto) 6.2 (0.0-15.0) % Eos % (Auto) 2.4 (0.0-7.0) % Baso % (Auto) 0.3 (0.0-1.5) % Neut # (Auto) 7.2 H (1.4-5.7) K/uL Lymph # (Auto) 2.2 (0.6-2.4) K/uL [place] # (Auto) 0.6 (0.0-0.8) K/uL Eos # (Auto) 0.3 (0.0-0.7) K/uL Baso # (Auto) 0.0 (0.0-0.1) K/uL Nucleated RBC % 0.0 /100WBC Nucleated RBCs # 0 K/uL Sodium (136-145) mmol/L Potassium (3.5-5.1) mmol/L Chloride (98-107) mmol/L Carbon Dioxide (21.0-32.0) mmol/L BUN (7.0-18.0) mg/dL Creatinine (0.6-1.0) mg/dL Est Cr Clr Drug Dosing mL/min Estimated GFR (MDRD) ml/min Glucose (74-106) mg/dL Calcium (8.5-10.1) mg/dL Total Bilirubin (0.2-1.0) mg/dL AST (15-37) IU/L ALT (14-63) IU/L Alkaline Phosphatase (46-116) U/L Total Protein (6.4-8.2) g/dL Albumin (3.4-5.0) g/dL Globulin (2.6-4.0) g/dL Albumin/Globulin Ratio (0.9-1.6) Urine Color YELLOW Urine Appearance CLEAR Urine pH 6.5 (5.0-8.0) Ur Specific [place] 1.010 (1.001-1.035) Urine Protein NEGATIVE (NEGATIVE) mg/dL Urine Glucose (UA) NEGATIVE (NEGATIVE) mg/dL Urine Ketones NEGATIVE (NEGATIVE) mg/dL Urine Occult Blood MODERATE H (NEGATIVE) Urine Nitrite NEGATIVE (NEGATIVE) Urine Bilirubin NEGATIVE (NEGATIVE) Urine Urobilinogen 0.2 (<2.0) EU/dL Ur Leukocyte Esterase SMALL H (NEGATIVE) Urine RBC 1-3 (0-2/HPF) Urine WBC 2-4 (0-5/HPF) Ur Epithelial Cells RARE (NONE-FEW) Urine Bacteria RARE (NEGATIVE) Urine HCG, Qual POSITIVE (NEGATIVE) Blood Type 08/16/21 08/16/21 Range/Units 03:25 03:25 WBC (4.0-11.0) K/uL RBC (4.30-5.90) M/uL Hgb (12.0-16.0) g/dL Hct (36.0-46.0) % MCV (80.0-98.0) fL MCH (27.0-32.0) pg MCHC (31.0-37.0) g/dL RDW Std Deviation (28.0-62.0) fl RDW Coeff of Silvino (11.0-15.0) % Plt Count (150-400) K/uL MPV (7.40-12.00) fL Neut % (Auto) (48.0-80.0) % Lymph % (Auto) (16.0-40.0) % [place] % (Auto) (0.0-15.0) % Eos % (Auto) (0.0-7.0) % Baso % (Auto) (0.0-1.5) % Neut # (Auto) (1.4-5.7) K/uL Lymph # (Auto) (0.6-2.4) K/uL [place] # (Auto) (0.0-0.8) K/uL Eos # (Auto) (0.0-0.7) K/uL Baso # (Auto) (0.0-0.1) K/uL Nucleated RBC % /100WBC Nucleated RBCs # K/uL Sodium 135 L (136-145) mmol/L Potassium 3.8 (3.5-5.1) mmol/L Chloride 103 (98-107) mmol/L Carbon Dioxide 25.1 (21.0-32.0) mmol/L BUN 7 (7.0-18.0) mg/dL Creatinine 0.7 (0.6-1.0) mg/dL Est Cr Clr Drug Dosing 105.16 mL/min Estimated GFR (MDRD) > 60.0 ml/min Glucose 79 (74-106) mg/dL Calcium 8.3 L (8.5-10.1) mg/dL Total Bilirubin 0.1 L (0.2-1.0) mg/dL AST 11 L (15-37) IU/L ALT 13 L (14-63) IU/L Alkaline Phosphatase 66 (46-116) U/L Total Protein 6.6 (6.4-8.2) g/dL Albumin 2.5 L (3.4-5.0) g/dL Globulin 4.1 H (2.6-4.0) g/dL Albumin/Globulin Ratio 0.6 L (0.9-1.6) Urine Color Urine Appearance Urine pH (5.0-8.0) Ur Specific [place] (1.001-1.035) Urine Protein (NEGATIVE) mg/dL Urine Glucose (UA) (NEGATIVE) mg/dL Urine Ketones (NEGATIVE) mg/dL Urine Occult Blood (NEGATIVE) Urine Nitrite (NEGATIVE) Urine Bilirubin (NEGATIVE) Urine Urobilinogen (<2.0) EU/dL Ur Leukocyte Esterase (NEGATIVE) Urine RBC (0-2/HPF) Urine WBC (0-5/HPF) Ur Epithelial Cells (NONE-FEW) Urine Bacteria (NEGATIVE) Urine HCG, Qual (NEGATIVE) Blood Type O POSITIVE Departure - Departure Time of Disposition: 05:58 Disposition: Home, Self-Care 01 Condition: Good Clinical Impression: Threatened miscarriage - Discharge Information Instructions: Threatened Miscarriage, [id number] Referrals: PCP,None [Ordering Only Provider] - Forms: ED Department Discharge Additional Instructions: You were seen and evaluated in ER today secondary to episodes of vaginal bleeding earlier today with abdominal cramping. The ultrasound that we obtained reveals a single live intrauterine gestation that is 14 weeks and 1 day. Your placenta was posterior and there is no perigestational bleeding noted. Please make an appointment to see Dr. marroquin in the next 1 to 2 days to be reevaluated. The following information is given to patients seen in the emergency department who are being discharged to home. This information is to outline your options for follow-up care. We provide all patients seen in our emergency department with a follow-up referral. The need for follow-up, as well as the timing and circumstances, are variable depending upon the specifics of your emergency department visit. If you don't have a primary care physician on staff, we will provide you with a referral. We always advise you to contact your personal physician following an emergency department visit to inform them of the circumstance of the visit and for follow-up with them and/or the need for any referrals to a consulting specialist. The emergency department will also refer you to a specialist when appropriate. This referral assures that you have the opportunity for follow-up care with a specialist. All of these measure are taken in an effort to provide you with optimal care, which includes your follow-up. Under all circumstances we always encourage you to contact your private physician who remains a resource for coordinating your care. When calling for follow-up care, please make the office aware that this follow-up is from your recent emergency room visit. If for any reason you are refused follow-up, please contact the [facility] Emergency Department at and asked to speak to the emergency department charge nurse. [facility] - Primary [facility] [address] [place] [id number] [facility] [address] [place] [id number] Sepsis Event Note (ED) - Evaluation Sepsis Screening Result: No Definite Risk - Focused Exam Vital Signs: Vital Signs Temp Pulse Resp BP Pulse Ox 08/16/21 06:10 97.2 F 84 18 101/64 98 08/16/21 02:35 96.5 F L 87 18 107/63 97
[2021-08-16 03:52] LABS: BLOOD UREA NITROGEN,BUN 7 mg/dL (7.0-18.0); CARBON DIOXIDE,CO2 25.1 mmol/L (21.0-32.0); CHLORIDE,CL 103 mmol/L (98-107); GLUCOSE RANDOM 79 mg/dL (74-106); POTASSIUM,K 3.8 mmol/L (3.5-5.1); SODIUM,NA 135 mmol/L (136-145)
--- NOTE | 2021-08-16 05:49 | US ---
INDICATION: , vaginal bleeding TECHNIQUE: Ultrasound OB pelvis transabdominal. Real-time dacosta-scale imaging of the fetus was performed with static images saved for review. Patient declined transvaginal imaging. COMPARISON: Obstetric ultrasound 06/15/2021 FINDINGS: Clinical Age: 14 weeks 1 day ([facility] 02/13/2022) Sonographic imaging demonstrates a single living intrauterine gestation. Fetus demonstrates a regular cardiac rate of 150 beats per minute. Fetus has a cephalic orientation. The placenta lies posterior without evidence of placenta previa. Amniotic fluid volume appears subjectively normal. The following biometric measurements were obtained: Biparietal diameter: 2.8 centimeters corresponding to 15 weeks 1 day. Head circumference: 10.4 centimeters corresponding to 15 weeks 0 days. Abdominal circumference: 8.2 centimeters corresponding to 14 weeks 4 days. Femur length: 1.7 centimeters corresponding to 15 weeks 0 days. The weight is estimated at 106 grams, the 79th percentile. No perigestational bleed. No maternal adnexal mass. Cervix measures 3.3 centimeters and is closed transabdominally. IMPRESSION.: 1. Single live intrauterine gestation with a clinical age of 14 weeks 1 day. 2. Posterior placenta without perigestational bleed. Subjectively normal amniotic fluid. Dictated by Juan Luis Jain MD @ 08/16/2021 5:48:08 AM (Electronically Signed)
== END 2021-08-16 06:10 | disposition home or self-care (01) ==
LOC: MW.ED 02:19
DX: O20.0 Threatened abortion (principal); Z3A.14 14 weeks gestation of pregnancy
CPT/HCPCS: 36415; 76801; 76801-26; 80053; 81001; 81025; 85025; 86900; 86901; 99284-25

== ENCOUNTER 2021-08-23 01:39 | Emergency (ER) | payer MEDICAID ==
[2021-08-23] MEDS ORDERED: Acetaminophen 325 MG Tab PO ONE (02:21)
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
== END 2021-08-23 02:42 | disposition home or self-care (01) ==
LOC: MW.ED 01:39
DX: O9A.23 Injury, poisoning and certain other consequences of external causes complicating the puerperium (principal); S30.0XXA Contusion of lower back and pelvis, initial encounter; Z3A.14 14 weeks gestation of pregnancy; W22.09XA Striking against other stationary object, initial encounter
CPT/HCPCS: 99283; A9270

== ENCOUNTER 2021-09-11 13:59 | Observation (INO) | payer MEDICAID ==
[2021-09-11] MEDS ORDERED: Sodium Chloride 0.9% 20 ML SDV IV PRN (14:18)
[2021-09-11] MEDS ORDERED: Misoprostol 200 MCG Tab PO PRN (14:18)
[2021-09-11] MEDS ORDERED: Sodium Chloride 0.9% 10 ML Syringe FLUSH PRN (14:18)
[2021-09-11] MEDS ORDERED: Sodium Chloride 0.9% 2.5 ML Syringe FLUSH PRN (14:18)
[2021-09-11 16:35] LABS: BLOOD UREA NITROGEN,BUN 10 mg/dL (7.0-18.0); CARBON DIOXIDE,CO2 22.6 mmol/L (21.0-32.0); CHLORIDE,CL 105 mmol/L (98-107); GLUCOSE RANDOM 68 mg/dL (74-106); POTASSIUM,K 3.8 mmol/L (3.5-5.1); SODIUM,NA 137 mmol/L (136-145)
[2021-09-11] MEDS ORDERED: Butorphanol 1 MG/ML SDV IVPUSH PRN (17:19)
[2021-09-11] MEDS ORDERED: Promethazine 25 MG/ML SDV IM ONE (17:21)
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
[2021-09-11] MEDS ORDERED: Oxytocin/0.9 % Sodium Chloride 30 UNIT/500 ML BAG ONE (18:16)
[2021-09-11] MEDS ORDERED: Morphine 2 MG/ML SYRINGE IVPUSH ONE (18:23)
[2021-09-11] MEDS ORDERED: Morphine 2 MG/ML SYRINGE ONE (18:24)
[2021-09-11] MEDS ORDERED: Oxytocin/0.9 % Sodium Chloride 30 UNIT/500 ML BAG IV SCH (18:45)
[2021-09-11] MEDS ORDERED: Ibuprofen 800 MG Tab PO ONE (18:59)
[2021-09-11] MEDS ORDERED: ceFAZolin 1 GM in Premix Bag 1 BAG IV ONE (19:45)
--- NOTE | 2021-09-11 21:08 | PCM.DEL ---
L & D Note - General Info Date of Service: 09/11/21 - Delivery Note Cervical Ripening Method: Misoprostil, Prostaglandin E2 Delivery Outcome: Stillbirth Episiotomy Type: None - Patient Data Weight - Most Recent: 57.606 kg Lab Results Last 24 Hours: Laboratory Results - last 24 hr 09/11/21 09/11/21 09/11/21 Range/Units 15:08 15:44 15:44 WBC 8.14 (4.0-11.0) K/uL RBC 3.92 L (4.30-5.90) M/uL Hgb 12.3 (12.0-16.0) g/dL Hct 35.5 L (36.0-46.0) % MCV 90.6 (80.0-98.0) fL MCH 31.4 (27.0-32.0) pg MCHC 34.6 (31.0-37.0) g/dL RDW Std Deviation 42.3 (28.0-62.0) fl RDW Coeff of Silvino 13 (11.0-15.0) % Plt Count 247 (150-400) K/uL MPV 9.40 (7.40-12.00) fL Neut % (Auto) 69.3 (48.0-80.0) % Lymph % (Auto) 22.6 (16.0-40.0) % [place] % (Auto) 6.8 (0.0-15.0) % Eos % (Auto) 1.1 (0.0-7.0) % Baso % (Auto) 0.2 (0.0-1.5) % Neut # (Auto) 5.6 (1.4-5.7) K/uL Lymph # (Auto) 1.8 (0.6-2.4) K/uL [place] # (Auto) 0.6 (0.0-0.8) K/uL Eos # (Auto) 0.1 (0.0-0.7) K/uL Baso # (Auto) 0.0 (0.0-0.1) K/uL Nucleated RBC % 0.0 /100WBC Nucleated RBCs # 0 K/uL Sodium (136-145) mmol/L Potassium (3.5-5.1) mmol/L Chloride (98-107) mmol/L Carbon Dioxide (21.0-32.0) mmol/L BUN (7.0-18.0) mg/dL Creatinine (0.6-1.0) mg/dL Est Cr Clr Drug Dosing Estimated GFR (MDRD) ml/min Glucose (74-106) mg/dL Calcium (8.5-10.1) mg/dL Total Bilirubin (0.2-1.0) mg/dL AST (15-37) IU/L ALT (14-63) IU/L Alkaline Phosphatase (46-116) U/L Total Protein (6.4-8.2) g/dL Albumin (3.4-5.0) g/dL Globulin (2.6-4.0) g/dL Albumin/Globulin Ratio (0.9-1.6) SARS-CoV-2 RNA (TAO) NEGATIVE (NEGATIVE) Blood Type O POSITIVE Antibody Screen NEGATIVE 09/11/21 Range/Units 15:44 WBC (4.0-11.0) K/uL RBC (4.30-5.90) M/uL Hgb (12.0-16.0) g/dL Hct (36.0-46.0) % MCV (80.0-98.0) fL MCH (27.0-32.0) pg MCHC (31.0-37.0) g/dL RDW Std Deviation (28.0-62.0) fl RDW Coeff of Silvino (11.0-15.0) % Plt Count (150-400) K/uL MPV (7.40-12.00) fL Neut % (Auto) (48.0-80.0) % Lymph % (Auto) (16.0-40.0) % [place] % (Auto) (0.0-15.0) % Eos % (Auto) (0.0-7.0) % Baso % (Auto) (0.0-1.5) % Neut # (Auto) (1.4-5.7) K/uL Lymph # (Auto) (0.6-2.4) K/uL [place] # (Auto) (0.0-0.8) K/uL Eos # (Auto) (0.0-0.7) K/uL Baso # (Auto) (0.0-0.1) K/uL Nucleated RBC % /100WBC Nucleated RBCs # K/uL Sodium 137 (136-145) mmol/L Potassium 3.8 (3.5-5.1) mmol/L Chloride 105 (98-107) mmol/L Carbon Dioxide 22.6 (21.0-32.0) mmol/L BUN 10 (7.0-18.0) mg/dL Creatinine 0.7 (0.6-1.0) mg/dL Est Cr Clr Drug Dosing TNP Estimated GFR (MDRD) > 60.0 ml/min Glucose 68 L (74-106) mg/dL Calcium 8.9 (8.5-10.1) mg/dL Total Bilirubin 0.1 L (0.2-1.0) mg/dL AST 15 (15-37) IU/L ALT 13 L (14-63) IU/L Alkaline Phosphatase 75 (46-116) U/L Total Protein 6.2 L (6.4-8.2) g/dL Albumin 2.6 L (3.4-5.0) g/dL Globulin 3.6 (2.6-4.0) g/dL Albumin/Globulin Ratio 0.7 L (0.9-1.6) SARS-CoV-2 RNA (TAO) (NEGATIVE) Blood Type Antibody Screen Med Orders - Current: Current Medications Butorphanol Tartrate (Butorphanol 1 Mg/Ml Sdv) 1 mg IVPUSH Q1H PRN PRN Reason: Pain (severe 7-10) Last Admin: 09/11/21 17:49 Dose: 1 mg Documented by: Oxytocin/Sodium Chloride (Oxytocin 30 Unit In Ns 0.9% 500 Ml Premix) 30 unit in 500 mls @ 999 mls/hr IV TITRATE MIKHAIL; Protocol Ibuprofen (Ibuprofen 800 Mg Tab) 800 mg PO Q8H PRN PRN Reason: Cramping Misoprostol (Misoprostol 200 Mcg Tab) 600 mcg PO ONETIME PRN PRN Reason: cervical ripening Last Admin: 09/11/21 17:30 Dose: 600 mcg Documented by: Sodium Chloride (Sodium Chloride 0.9% 2.5 Ml Syringe) 2.5 ml FLUSH ASDIRECTED PRN PRN Reason: Keep Vein Open Sodium Chloride (Sodium Chloride 0.9% 20 Ml Sdv) 10 ml IV ASDIRECTED PRN PRN Reason: IV Use Sodium Chloride (Sodium Chloride 0.9% 10 Ml Syringe) 10 ml FLUSH ASDIRECTED PRN PRN Reason: Keep Vein Open Discontinued Medications Oxytocin/Sodium Chloride (Oxytocin 30 Unit In Ns 0.9% 500 Ml Premix) Confirm Administered Dose 30 unit in 500 mls @ as directed .ROUTE .STK-MED ONE Stop: 09/11/21 18:17 Last Admin: 09/11/21 18:24 Dose: 999 mls/hr Documented by: Cefazolin Sodium/Dextrose 1 gm (/ Premix) 50 mls @ 100 mls/hr IV ONETIME ONE Stop: 09/11/21 20:14 Ibuprofen (Ibuprofen 800 Mg Tab) 800 mg PO ONETIME ONE Stop: 09/11/21 19:00 Last Admin: 09/11/21 19:36 Dose: 800 mg Documented by: Morphine Sulfate (Morphine 2 Mg/Ml Syringe) 2 mg IVPUSH ONETIME ONE Stop: 09/11/21 18:24 Last Admin: 09/11/21 18:27 Dose: 2 mg Documented by: Morphine Sulfate (Morphine 2 Mg/Ml Syringe) Confirm Administered Dose 2 mg .ROUTE .STK-MED ONE Stop: 09/11/21 18:25 Last Admin: 09/11/21 18:45 Dose: Not Given Documented by: Promethazine HCl (Promethazine 25 Mg/Ml Sdv) 25 mg IM ONETIME ONE Stop: 09/11/21 17:22 Last Admin: 09/11/21 17:52 Dose: 25 mg Documented by: - Problem List & Annotations (1) demise SNOMED Code(s): 332573862 Code(s): [id number] - Status: Acute Priority: High Current Visit: Yes - My Orders Last 24 Hours: My Active Orders 09/11/21 Breakfast Regular Diet [DIET] 09/11/21 14:18 Patient Status [ADT] Routine Peripheral IV Care [RC] PRN Up ad Clara [RC] ASDIRECTED Vital Signs [RC] PER UNIT ROUTINE Sodium Chloride 0.9% [Normal Saline] 10 ml IV ASDIRECTED PRN Sodium Chloride 0.9% [Saline Flush] 10 ml FLUSH ASDIRECTED PRN Sodium Chloride 0.9% [Saline Flush] 2.5 ml FLUSH ASDIRECTED PRN miSOPROStoL [Cytotec] 600 mcg PO ONETIME PRN Peripheral IV Insertion Adult [OM.PC] Routine Resuscitation Status Routine 09/11/21 17:19 Butorphanol [Stadol] 1 mg IVPUSH Q1H PRN 09/11/21 18:45 Oxytocin/0.9 % Sodium Chloride [Oxytocin 30 Unit in NS 0.9% 500 ML Premix] 30 unit in 500 ml IV TITRATE 09/12/21 03:00 Ibuprofen [Motrin] 800 mg PO Q8H PRN - Plan Plan:: 21yo at 17w6d [place] here with demise. Etiology unclear. P: Admit to L&D and perform labs Vaginal cytotec 600mcg expectant management
[2021-09-11] MEDS ORDERED: Acetaminophen 500 MG Tab PO ONE (23:16)
[2021-09-12] MEDS ORDERED: Ibuprofen 800 MG Tab PO PRN (03:00)
[2021-09-12] MEDS ORDERED: Clindamycin Phosphate in D5W 900 MG in Premix Bag 1 BAG IV ONE ×2 (10:30)
[2021-09-12] MEDS ORDERED: Ampicillin 2 GM in Sodium Chloride 0.9% 100 ML IV ONE (11:00)
[2021-09-16 14:08] LABS: C.TRACHOMATIS BY TMA Negative (Negative); N.GONORRHOEAE BY TMA Negative (Negative)
== END 2021-09-12 18:15 | disposition home or self-care (01) ==
LOC: MW.OB 13:59
PROVIDERS: ADMIT Obstetrics & Gynecology Obstetrics; ATTEND Obstetrics & Gynecology
DX: O02.1 Missed abortion (principal); F41.9 Anxiety disorder, unspecified; F32.A Depression, unspecified; Z3A.17 17 weeks gestation of pregnancy; Z20.822 Contact with and (suspected) exposure to COVID-19
CPT/HCPCS: 36415; 80053; 85025; 86850; 86900; 86901; 87086; 87491; 87591; 87635; 96372; 96374; 96375; A9270; G0378; J0290; J0595; J0690; J1580; J2270; J2550; J2590; J3490; U0002

== ENCOUNTER 2021-10-10 15:36 | Emergency (ER) | payer MEDICAID ==
[2021-10-10] MEDS ORDERED: Acetaminophen 500 MG Tab PO ONE (16:19)
[2021-10-10] MEDS ORDERED: Ketorolac 60 MG/2 ML SDV IM ONE (16:19)
[2021-10-10 16:31] LABS: CORONAVIRUS COVID-19 NAA POSITIVE (NEGATIVE); INFLUENZA A NAA NEGATIVE (NEGATIVE); INFLUENZA B NAA NEGATIVE (NEGATIVE)
[2021-10-10] MEDS ORDERED: Ketorolac 30 MG/ML SDV IVPUSH ONE (16:47)
== END 2021-10-10 17:30 | disposition home or self-care (01) ==
LOC: MW.ED 15:36
DX: U07.1 COVID-19 (principal)
CPT/HCPCS: 0240U; 96374; 99284; A9270; J1885

== ENCOUNTER 2022-05-11 23:21 | Emergency (ER) | payer MEDICAID ==
[2022-05-12] MEDS ORDERED: Famotidine 20 MG Tab PO ONE (02:26)
[2022-05-12] MEDS ORDERED: Alum Hydro/Mag Hydro/Simeth XS 15 ML, Lidocaine 2% 5 ML PO ONE ×2 (02:26)
[2022-05-12 03:11] LABS: POTASSIUM,K 3.8 mmol/L (3.5-5.1)
== END 2022-05-12 03:47 | disposition home or self-care (01) ==
LOC: MW.ED 23:21
DX: R10.13 Epigastric pain (principal); R10.12 Left upper quadrant pain; R21 Rash and other nonspecific skin eruption
CPT/HCPCS: 36415; 80053; 81003; 83690; 84702; 85025; 86850; 86900; 86901; 99284; A9270; 99283

== ENCOUNTER 2022-07-24 17:06 | Emergency (ER) | payer MEDICAID | END 2022-07-24 20:31 | disposition left against medical advice (07) | LOC: MW.ED 17:06 | DX: Z53.21 Procedure and treatment not carried out due to patient leaving prior to being seen by health care provider (principal) | CPT/HCPCS: 81001; 81025 ==

== ENCOUNTER 2022-08-18 10:54 | Emergency (ER) | payer MEDICAID ==
[2022-08-18 16:29] LABS: CORONAVIRUS COVID-19 NAA POSITIVE (NEGATIVE); INFLUENZA A NAA NEGATIVE (NEGATIVE); INFLUENZA B NAA NEGATIVE (NEGATIVE)
[2022-08-18 17:05] LABS: CARBON DIOXIDE,CO2 24.3 mmol/L (21.0-32.0); POTASSIUM,K 3.5 mmol/L (3.5-5.1)
== END 2022-08-18 18:41 | disposition home or self-care (01) ==
LOC: MW.ED 10:54
DX: O98.512 Other viral diseases complicating pregnancy, second trimester (principal); U07.1 COVID-19; Z3A.19 19 weeks gestation of pregnancy
CPT/HCPCS: 0240U; 36415; 76815; 80053; 81003; 84702; 85025; 99284